=== PATIENT | male | born 1960 | race Caucasian/White ===

== ENCOUNTER 2024-05-09 13:21 | Emergency (ER) | payer BC, SELFPAY ==
[2024-05-09] VITALS (22 sets, daily range): BP systolic 86–141; BP diastolic 59–100; PULSE 83–143; RESP 22; TEMP 37.1; O2SAT 85–98; BMI 27.5
--- OUTSIDE RECORDS SUMMARY | 2024-05-09 13:23 | XMS_ITS | Referral Summary ---
Author Organization [facility] Address [address] [place] [address] Care Team Providers Care Beta Tester Name Role Phone Elsewhere, Pcp Primary Care Provider Unavailabl e Source Comments Patient records contain information from all sites at [facility]. For routine questions regarding patient records, call [phone] during business hours, M-F 8:00 AM - 5:00 PM Central Time. Record requests for emergency care only can be directed to [phone] at any time.[facility] Encounters Date Type Department Care Team Description 2024 8:59 AM CASING SOAKER - 2024 10:14 AM [facility] Emergency [place] [facility] Department [address] [place] [phone] Kaur Hagen, JOYCE, C.N.P. Cough Acute (Primary Dx); Elevated Blood Pressure; Adjustment Disorder With Anxious Mood Discharge Disposition: Home or Self Care 04/28/2024 12:40 PM CASING SOAKER - 04/28/2024 12:57 PM [facility] Emergency [place] [facility] [address] [place] [phone] Lilly Mckenna P.A.-C., P.A. Cough Unspecified Type (Primary Dx) Discharge Disposition: Home or Self Care from Last 3 Months Allergies Active Allergy Reactions Criticality Noted Date Comments Cat Dander Other (see comments) 11/27/2008 Itchy watery eyes, allergies No Known Allergies Other (see comments) 013 Medications ibuprofen (for_ADVIL,MOTRI N) 200 mg tablet Take 600 mg by mouth every 6 (six) hours as needed for pain. Active acetaminophen (for_TYLENOL) 500 mg capsule Take 500 mg by mouth every 6 (six) hours as needed for pain. Active buPROPion (for_WELLBUTRIN) 75 mg tablet Take 1 tablet (75 mg total) by mouth 2 (two) times a day. 60 tablet 8 Active cyclobenzaprine (FLEXERIL) 5 mg tabletIndication s:Sciatica Right Take 1 tablet (5 mg total) by mouth 3 (three) times a day as needed for muscle spasms for up to 10 days. 30 tablet 1 Active benzonatate (Tessalon Perles) 100 mg capsule Take 1 capsule (100 mg total) by mouth 3 (three) times a day as needed for cough. 20 capsule 4 Active doxycycline monohydrate (Monodox) 100 mg capsuleIndicatio ns:Cough Acute Take 1 capsule (100 mg total) by mouth 2 (two) times a day before morning and evening meals for 5 days. 10 capsule 5 05/12/19 25 Active albuterol 90 mcg/actuation inhaler Inhale 2 puffs every 6 (six) hours as needed for wheezing. 18 g 5 Active hydrOXYzine (Atarax) 10 mg tablet Take 1 tablet (10 mg total) by mouth every 6 (six) hours as needed for anxiety for up to 10 days. 30 tablet 5 05/17/19 25 Active predniSONE (Deltasone) 20 mg tablet Take 1 tablet (20 mg total) by mouth 2 (two) times a day for 5 days. 10 tablet 4 05/03/19 25 Active Problems No known active problems Social History Tobacco Use Types Packs/Day Years Used Date Smoking Tobacco: Every Day Cigarettes 1 25 Passive Smoke Exposure: Never Smokeless Tobacco: Never Tobacco Cessation:Ready to Q uit: Not Asked; Counseling Given: Not Answered Alcohol Use Standard Drinks/Week Comments Yes 8 (1 standard drink = 0.6 oz pur e alcohol) Nutrition Answer Date Recorded Nutrition: EVOO Fat Source 13 11/27 Nutrition: Servings of Fruits/Vegetables per Day Not on file 11/28/2019 Dental Answer Date Recorded Dental: Regular Dentist Unknown 07/06/19 21 Sex and Gender Information Value Date Recorded Sex Assigned at Not on file Legal Sex Male 5:17 PM CASING SOAKER Gender Identity Not on file Sexual Orientation Not on file Last Filed Vital Signs Vital Sign Reading Time Taken Comments Blood Pressure 135/87 2024 10:09 AM CASING SOAKER Pulse 73 2024 10:09 AM CASING SOAKER Temperature 36.3 C (97.3 F) 2024 8:33 AM CASING SOAKER Respiratory Rate 20 2024 8:33 AM CASING SOAKER Oxygen Saturation 98% 2024 8:33 AM CASING SOAKER Inhaled Oxygen Concentration - - Weight 90.2 kg (198 lb 12.8 oz) 2024 8:37 AM CASING SOAKER Height 179.1 cm (5' 10.5) 2024 8:36 AM CS T Body Mass Index 28.12 2024 8:36 AM CASING SOAKER Plan of Treatment Not on file Procedures Procedure Name Priority Date/Time Associated Diagnosis Comments DX CHEST AP OR PA AND LATERAL 2 VIEWS RAD - Semiurgent (Fast; most ED patients; some inpatients) 04/28/2024 12:02 PM CASING SOAKER BASIC METABOLIC PANEL, S/P STAT 10/07/2022 6:41 PM CDT Fatigue from Last 3 Months or Most Recently Relevant to Health Maintenance Results * DX Chest AP or PA and Lateral 2 Views (04/28/2024 12:02 PM CASING SOAKER) Anatomical Region Laterality Modality Chest, Thoracic RST LOS, Tho racic ARZ LOS, Thoracic FLA LOS N/A Digital Radiography Impressions 04/28/2024 12:06 PM CASING SOAKER 1. No active cardiopulmonary disease. 2. 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 Narrative 04/28/2024 12:06 PM CASING SOAKER EXAM: DX CHEST AP OR PA AND LATERAL 2 VIEWS COMPARISON: None FINDINGS: Bony thorax is unremarkable. Heart size and pulmonary vascularity are within normal limits. There are scattered nodular densities in the right infrahilar region and middle lobe likely representing granulomata. Lungs are clear of infiltrates or effusions. Procedure Note Norman Lees Jr., M.D. - 04/28/2024 EXAM: DX CHEST AP OR PA AND LATERAL 2 VIEWS COMPARISON: None FINDINGS: Bony thorax is unremarkable. Heart size and pulmonaryvascularity are within normal limits. There are scattered nodulardensities in the right infrahilar region and middle lobe likelyrepresenting granulomata. Lungs are clear of infiltrates or effusions. IMPRESSION: 1. No active cardiopulmonary disease. 2. 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 Lilly Mckenna P.A.-C., P.A. IMG DIAGNOSTIC IMAGI NG PROCEDURES Final Result * Basic Metabolic Panel (10/07/2022 6:41 PM CDT) Potassium, P 4.0 3.6 - 5.2 mmol/L 10/07/2022 7:03 PM CDT NPRG Sodium, P 138 135 - 145 mmol/L 10/07/2022 7:03 PM CDT NPRG Chloride, P 103 98 - 107 mmol/L 10/07/2022 7:03 PM CDT NPRG Bicarbonate, P 24 22 - 29 mmol/L 10/07/2022 7:03 PM CDT NPRG Anion Gap, P 11 7 - 15 10/07/2022 7:03 PM CDT NPRG BUN (Blood Urea Nitrogen), P 13 8 - 24 mg/dL 10/07/2022 7:03 PM CDT NPRG Creatinine 0.95 0.74 - 1.35 mg/dL 10/07/2022 7:03 PM CDT NPRG Estimated GFR (eGFR) >90 >=60 mL/min/BSA 10/07/2022 7:03 PM CDT NPRG Comment: Estimated GFR calculated using the 2020 CKD_EPI creatinine equation. Calcium, Total, P 8.9 8.8 - 10.2 mg/dL 10/07/2022 7:03 PM CDT NPRG Glucose, P 88 70 - 140 mg/dL 10/07/2022 7:03 PM CDT NPRG Blood (Blood, Venous) 10/07/2022 6:41 PM CDT 10/07/2022 6:45 PM CDT Beto Medina P.A.-C., P.A. LAB BLOOD ADD -ON Final Result [facility] [address] [place] [address], [place] NPRG [facility] [address] [place] [address] from Last 3 Months or Most Recently Relevant to Health Maintenance Insurance [facility] [place] [id number] Care Teams Beta Tester Relationship Specialty Start Date End Date Elsewhere, Pcp PCP - General Internal Medicine 02/21/19
--- OUTSIDE RECORDS SUMMARY | 2024-05-09 13:23 | XMS_ITS | Clinical Summary ---
Author Organization [facility] Address [place], [place] [address] Care Team Providers Care Automotive Painter Helper Name Role Phone Bernard Ohara DO Primary Care Provider [phone] Allergies Active Allergy Reactions Criticality Noted Date Comments Cats (Fur, Dander, Saliva) 9 Medications polyethylene glycol-electroly te (GOLYTELY) 236-22.74-6.74 -5.86 gram suspensionIndica tions:Encounter for screening colonoscopy Drink 2 liters (half the bottle) the day before colonoscopy and 2 liters (remaining prep) 6 hours prior to colonoscopy appointment. 4000 mL 3 Active albuterol HFA (PRO-AIR; VENTOLIN; PROVENTIL) 90 mcg/actuation inhaler Inhale 2 Puffs by mouth every 6 hours if needed. 5 Active doxycycline monohydrate 100 mg capsule Take 100 mg by mouth. 5 05/12/19 25 Active predniSONE (DELTASONE) 20 mg tablet 4 Active Active Problems Problem Noted Date Diagnosed Date Colon polyp 10/30/2022 Overview (10/30/2022): Colonoscopy 10/2022 TA, repeat in 7 years Tobacco use 10/16/2022 Encounters Date Type Department Care Team Description 05/09/2024 12:30 PM AIRPLANE CHARTER CLERK Office Visit [facility] [address] [place] [address] Mariela Schmitz PA Breathing Problem (Patient was seen in ED ON 04/28/24- 05/07/24 for cough and breathing issues, patient still has trouble BREATHING CANT SLEEP /BODY ACHES x 2 weeks, patient was given medication it helps a little bit /) 05/09/2024 Travel from Last 3 Months Immunizations Name Administration Dates Next Due Influenza, IIV4 02/04/2023 Tdap 02/04/2023 Family History Medical History Relation Name Comments Cancer-colon Father Diverticulosis Mother Relation Name Status Comments Father Mother Social History Tobacco Use Types Packs/Day Years Used Date Smoking Tobacco: Former Cigarettes 1 13.3 0 12/01/2009 - 12/01/2005 Smokeless Tobacco: Never Tobacco Cessation:Counseling Given: No Comments:Patient quit x 2 months ago Alcohol Use Standard Drinks/Week Comments Not Currently 0 (1 standard drink = 0.6 oz pur e alcohol) occassionally PHQ-2 Answer Date Recorded PHQ-2 TOTAL SCORE 0 10/16/2022 Social Connections Answer Date Recorded Frequency of Communication with Friends and Fami ly 0 02/04/2023 Financial Resource Strain Answer Date R ecorded Difficulty of Paying Living Expenses 3 02/04/2023 Difficulty of Paying Living Expenses Not on file 02/04/2023 Food Insecurity Answer Date Recorded Worried About Running Out of Food in the Last Ye ar 1 02/04/2023 Transportation Needs Answer Date Record ed Lack of Transportation (Medical) 1 02/04/2023 Housing Stability Answer Date Recorded Unable to Pay for Housing in the Last Year 1 02/04/2023 Sex and Gender Information Value Date Recorded Sex Assigned at Not on file Legal Sex Male 5:42 AM AIRPLANE CHARTER CLERK Gender Identity Not on file Sexual Orientation Not on file Obstetrics History Last Filed Vital Signs Vital Sign Reading Time Taken Comments Blood Pressure 128/84 05/09/2024 12:31 PM AIRPLANE CHARTER CLERK Pulse 57 05/09/2024 12:31 PM AIRPLANE CHARTER CLERK Temperature 37.1 C (98.8 F) 05/09/2024 12:31 PM AIRPLANE CHARTER CLERK Respiratory Rate 16 10/27/2022 2:33 PM CDT Oxygen Saturation 97% 05/09/2024 12: 31 PM AIRPLANE CHARTER CLERK Inhaled Oxygen Concentration - - Weight 92.1 kg (203 lb 1.6 oz) 05/09/19 12:31 PM AIRPLANE CHARTER CLERK Height 182 cm (5' 11.65) 05/09/2024 12 :31 PM AIRPLANE CHARTER CLERK with shoes Body Mass Index 27.81 05/09/2024 12:31 PM AIRPLANE CHARTER CLERK Plan of Treatment Health Maintenance Due Date Last Done Comments HIV for age 15-65 1975 Hepatitis C screening for ag e 18-79 1978 Pneumococcal series for age 50+ (1 of 2 - PCV) 1979 Zoster (shingles) series for age 50+ (1 of 2) 2010 Depression screening for age 12+ 10/21/2023 10/20/2022, 10/16/2022, 10/16/2022 COVID-19 vaccine series (2 - season) 2024 09/18/2020 Influenza for age 50-64 01/02/2024 02/04/2023 BMI (ht and wt on same day) for age 18+ 05/09/2025 05/09/2024, 10/16/2022 Lipids for age 45-75 10/17/2027 10/16/2022 Colonoscopy through age 75 10/27/202910/27, 10/27/2022, 10/27/2022, Additional history exists Tetanus booster 02/04/2033 02/04/2023 RSV vaccine for adults or (1 - 1-dose 75+ series) 2035 Tdap Completed 02/04/2023 Procedures Procedure Name Priority Date/Time Associated Diagnosis Comments COLONOSCOPY SCREENING Routine 10/27/2022 1:21 PM CDT Screen for colon cancer LIPID PANEL W REFLEX MEASURED LDL Routine 10/16/2022 4:07 PM CDT Lipid screening from Last 3 Months or Most Recently Relevant to Health Maintenance Results * COLONOSCOPY (10/27/2022 1:18 PM CDT) 10/27/2022 1:18 PM CDT Narrative Transcriptions Ruslan Aburto MD - 11/25/2022 3:11 PM CDT Patient Name: Chidi Farmer Procedure Date: 10/27/2022 Gender: Male Date of : 1960 Admit Type: Outpatient Procedure: Colonoscopy Proceduralist: Ruslan Aburto MD , Marce Clark (Nurse), Viktoriya Valdes (Nurse) Referring MD: Bernard Ohara Indications/Pre-Op Diagnosis: Screening for colorectal malignant neoplasm, This is the patient's first colonoscopy Medications: Fentanyl 100 micrograms IV, Midazolam 4 mgIV, The level of sedation administered wasmoderate Procedure Description: The patient had risks, benefits and alternatives explained to andgave informed consent. The patient had a stable cardiopulmonary status and judged an adequate candidate for conscious sedation. The PCF-H190L [id number] was passed through the anus and advanced to the cecum, identified by appendiceal orifice and ileocecal valve. The colonoscopy was performed without difficulty. The patient toleratedthe procedure well. The quality of the bowel preparation was good. The ileocecal valve, appendiceal orifice, and rectum were photographed. Complications: No immediate complications. Estimated Blood Loss & Specimen: Estimated blood loss: none. Specimen collected - Yes and sent to Laboratory Findings: The perianal and digital rectal examinations were normal. A 3 mm polyp was found in the cecum. The polyp was sessile. The polyp was removed with a cold snare. Resection was complete, but the polyp tissue was not retrieved. A 2 mm polyp was found in the ascending colon. The polyp was sessile. The polyp was removed with a cold biopsy forceps. Resection and retrieval were complete. The exam was otherwise without abnormality. Impressions/Post-Op Diagnosis: - One 3 mm polyp in the cecum, removed with a cold snare. Complete resection. Polyp tissue not retrieved. - One 2 mm polyp in the ascending colon, removed with a cold biopsy forceps. Resected and retrieved. - The examination was otherwise normal. Recommendation: - Patient has a contact number available for emergencies. The signsand symptoms of potential delayed complications were discussed with the patient. Return to normal activities tomorrow. Written discharge instructions were provided to the patient. - Resume previous diet. - Continue present medications. - Await pathology results. - Repeat colonoscopy is recommended. The colonoscopy date will be determined after pathology results from today's exam become available for review. Moderate Sedation: A time out was performed before the procedure. Moderate (conscious) sedation was administered by the endoscopy nurse and supervised bythe endoscopist. The following parameters were monitored: oxygensaturation, heart rate, blood pressure, EKG, CO2, respiratory rate, adequacy of pulmonary ventilation and reponse to care. Please refer to the patient's medical record flowsheets and nursing notes for moderate sedation details. Total physician intraservice time was 19 minutes. Ruslan Aburto MD 10/27/2022 2:19:07 PM This report has been signed electronically. Note Initiated On: 10/27/2022 1:18 PM Procedure Code(s): --- Professional --- 79817, Colonoscopy, flexible; with removalof tumor(s), polyp(s), or other lesion(s) bysnare technique 30213, 59, Colonoscopy, flexible; withbiopsy, single or multiple Diagnosis Code(s): --- Professional --- Z12.11, Encounter for screening formalignant neoplasm of colon D12.0, Benign neoplasm of cecum D12.2, Benign neoplasm of ascending colon CPT copyright 2021 [employer]. All rights reserved. The codes documented in this report are preliminary and upon nut sorter operator reviewmay be revised to meet current compliance requirements. Scope In: 1:51:32 PM Scope Withdrawal Time 0 hours 10 minutes 22 seconds Scope Out: 2:07:12 PM us Ruslan Aburto MD PROCEDURE ORD Edited Re sult - Final * (ABNORMAL) LIPID PANEL W REFLEX MEASURED LDL (10/16/2022 4:07 PM CDT) CHOLESTEROL,TOTAL 216(H) 100 - 199 mg/dL 10/16/2022 11:08 PM CDT [facility] Comment: Cholesterol, Total Reference Ranges Desirable <200 mg/dL Borderline 200-239 mg/dL High >=240 mg/dL TRIGLYCERIDES 123 <150 mg/dL 10/16/2022 11:08 PM CDT [facility] HDL CHOLESTEROL 40(L) >40 mg/dL 11:08 PM CDT [facility] NON-HDL CHOLESTEROL 176(H) <145 mg/dl 10/16/2022 11:08 PM CDT [facility] CHOL/HDL RATIO 5.40(H) <4.50 10/16/2022 11:08 PM CDT [facility] LDL CHOLESTEROL 151(H) <=130 mg/dL 10/16/2022 11:08 PM CDT [facility] VLDL CHOLESTEROL 25 <=30 mg/dL 10/16/2022 11:08 PM T [facility] PROVIDER ORDERED STATUS RANDOM 10/16/2022 11:08 PM T [facility] Blood BLOOD SPECIMEN / Unknown Venipuncture / Unknown 10/16/2022 4:07 PM CDT 10/16/2022 4:09 PM CDT us Bernard Ohara DO CHEMISTRY Final Result [facility] [address] [place] [address], [place] from Last 3 Months or Most Recently Relevant to Health Maintenance Care Teams Automotive Painter Helper Relationship Specialty Start Date End Date Bernard Ohara DO [address] [place] [address] PCP - General Family Practice 10/16/22
--- OUTSIDE RECORDS SUMMARY | 2024-05-09 13:23 | XMS_ITS | Clinical Summary ---
Author Organization [facility] Address [address] [place] [address] Care Team Providers Care Tourist Agent Name Role Phone Elsewhere, Pcp Primary Care Provider Unavailabl e Source Comments Patient records contain information from all sites at [facility]. For routine questions regarding patient records, call [phone] during business hours, M-F 8:00 AM - 5:00 PM Central Time. Record requests for emergency care only can be directed to [phone] at any time.[facility] Allergies Active Allergy Reactions Criticality Noted Date [...] 25 Active Problems No known active problems Encounters Date Type Department Care Team Description 2024 8:59 AM SEWING MACHINE BOBBIN WINDER - 2024 10:14 AM [facility] Emergency/Urgent Care Department [address] [place] [phone] Kaur Hagen, JOYCE, C.N.P. Cough Acute (Primary Dx); Elevated Blood Pressure; Adjustment Disorder With Anxious Mood Discharge Disposition: Home or Self Care 04/28/2024 12:40 PM SEWING MACHINE BOBBIN WINDER - 04/28/2024 12:57 PM [facility] Emergency/Urgent Care Department [address] [place] [phone] Lilly Mckenna P.A.-C., P.A. Cough Unspecified Type (Primary Dx) Discharge Disposition: Home or Self Care from Last 3 Months Family History Medical History Relation Name Comments Colon cancer Father Coronary artery disease Father Atrial fibrillation Mother Relation Name Status Comments Father Alive Mother Alive Social History Tobacco Use Types Packs/Day Years [...] on file Legal Sex Male 5:17 PM SEWING MACHINE BOBBIN WINDER Gender Identity Not on file Sexual Orientation Not on file Last Filed Vital Signs Vital Sign Reading Time Taken Comments Blood Pressure 135/87 2024 10:09 AM SEWING MACHINE BOBBIN WINDER Pulse 73 2024 10:09 AM SEWING MACHINE BOBBIN WINDER Temperature 36.3 C (97.3 F) 2024 8:33 AM SEWING MACHINE BOBBIN WINDER Respiratory Rate 20 2024 8:33 AM SEWING MACHINE BOBBIN WINDER Oxygen Saturation 98% 2024 8:33 AM SEWING MACHINE BOBBIN WINDER Inhaled Oxygen Concentration - - Weight 90.2 kg (198 lb 12.8 oz) 2024 8:37 AM SEWING MACHINE BOBBIN WINDER Height 179.1 cm (5' 10.5) 2024 8:36 AM CS T Body Mass Index 28.12 2024 8:36 AM SEWING MACHINE BOBBIN WINDER Plan of Treatment Health Maintenance Due Date Last Done Comments CT Colonography 1960 Cologuard 1960 HIV Screening 1960 Hepatitis C Screening 1960 Lung Cancer Screening 1960 Tobacco Cessation counseling 1960 Pneumococcal vaccine (50+ ye ars) (1 of 2 - PCV) 1979 Zoster Vaccines (1 of 2) 2010 COVID-19 Vaccine (2 - 2023-2 5 season) 2024 09/18/2020 Influenza Vaccine (#1) 2024 02/04/2023 Depression Screening (Annual PHQ-2) 05/03/2024 Fasting Glucose for Diabetes Screening 10/07/2025 10/07/2022 Lipid (Cholesterol) Screening 10/17/2027 10/16/2022 Colonoscopy 10/28/2027 10/27/2022 Colorectal Cancer Surveillance 10/28/2027 DTaP,Tdap,and Td Vaccines (2 - Td or Tdap) 02/04/2033 02/04/2023 IPV Vaccines Aged Out No longer eligi ble based on patient's age to complete this topic Procedures Procedure Name Priority Date/Time Associated Diagnosis Comments DX CHEST AP OR PA AND LATERAL 2 VIEWS RAD - Semiurgent (Fast; most ED patients; some inpatients) 04/28/2024 12:02 PM SEWING MACHINE BOBBIN WINDER BASIC METABOLIC PANEL, S/P STAT 10/07/2022 6:41 PM CDT Fatigue from Last 3 Months or Most Recently Relevant to Health Maintenance Results * DX Chest AP or PA and Lateral 2 Views (04/28/2024 12:02 PM SEWING MACHINE BOBBIN WINDER) Anatomical Region Laterality Modality Chest, Thoracic RST LOS, Tho racic ARZ LOS, Thoracic FLA LOS N/A Digital Radiography Impressions 04/28/2024 12:06 PM SEWING MACHINE BOBBIN WINDER 1. No active cardiopulmonary disease. 2. 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 Narrative 04/28/2024 12:06 PM SEWING MACHINE BOBBIN WINDER EXAM: DX CHEST AP OR PA AND [...] on the right. Lilly Mckenna P.A.-C., P.A. IM DIAGNOSTIC IMAGI NG PROCEDURES Final Result * [...] P.A. LAB BLOOD ADD -ON Final Result [facility] [address] [place] [address], [facility] NPRG [facility] [address] [place] [address] from Last 3 Months or Most Recently Relevant to Health Maintenance Insurance [facility] [place]USEPPE [place] [id number] Care Teams Tourist Agent Relationship Specialty Start Date End Date Elsewhere, Pcp PCP - General Internal Medicine 02/21/19
--- OUTSIDE RECORDS SUMMARY | 2024-05-09 13:24 | XMS_ITS | Encounter Summary ---
Author Organization [facility] Address [address] [place] [address] Care Team Providers Care Clam Dredger Name Role Phone Elsewhere, Pcp Primary Care Provider Unavailabl e Reason for Visit * Reason Comments Cough Pt presents with cou gh that has been bothersome for about one week. No known fevers, chills or rigors. Pt states has trouble sleeping due to cough. Cough is productive of whitish/clear phlegm. Appetite has not been the same, able to take liquids easily. Denies new onset of body aches. Encounter Details Date Type Department Care Team (Late st Contact Info) Description 04/28/2024 12:40 PM SETTER COLD ROLLING MACHINE - 04/28/2024 12:57 PM SETTER COLD ROLLING MACHINE Emergency [facility] [address] [place] [phone] Lilly Mckenna P.A.-Victor Hugo., P.A. [address] [place] [phone] Cough Unspecified Type (Primary Dx) Discharge Disposition: Home or Self Care Social History Tobacco Use Types Packs/Day Years Used Date Smoking Tobacco: Every Day Cigarettes 1 25 Passive Smoke Exposure: Never Smokeless Tobacco: Never Alcohol Use Standard Drinks/Week Comments Yes 8 [...] on file Legal Sex Male 5:17 PM SETTER COLD ROLLING MACHINE Gender Identity Not on file Sexual Orientation Not on file documented as of this encounter Last Filed Vital Signs Vital Sign Reading Time Taken Comments Blood Pressure 110/88 04/28/2024 11:50 AM SETTER COLD ROLLING MACHINE Pulse 78 04/28/2024 11:46 AM SETTER COLD ROLLING MACHINE Temperature 36.8 C (98.2 F) 04/28/2024 11:46 AM SETTER COLD ROLLING MACHINE Respiratory Rate 18 04/28/2024 11:4 6 AM SETTER COLD ROLLING MACHINE Oxygen Saturation 97% 04/28/2024 11: 46 AM SETTER COLD ROLLING MACHINE Inhaled Oxygen Concentration - - Weight 94.2 kg (207 lb 11.2 oz) 024 11:45 AM SETTER COLD ROLLING MACHINE Height 182.9 cm (6') 04/28/2024 11:45 AM SETTER COLD ROLLING MACHINE Body Mass Index 28.17 04/28/2024 11:45 AM SETTER COLD ROLLING MACHINE documented in this encounter Medications at Time of Discharge acetaminophen (for_TYLENOL) 500 mg capsule Take 500 mg by mouth every 6 (six) hours as needed for pain. benzonatate (Tessalon Perles) 100 mg capsule Take 1 capsule (100 mg total) by mouth 3 (three) times a day as needed for cough. 20 capsule 04/28/2024 ibuprofen (for_ADVIL,MOTRIN ) 200 mg tablet Take 600 mg by mouth every 6 (six) hours as needed for pain. predniSONE (Deltasone) 20 mg tablet Take 1 tablet (20 mg total) by mouth 2 (two) times a day for 5 days. 10 tablet 04/28/2024 05/03/2024 documented as of this encounter Progress Notes * Lilly Mckenna P.A.-Victor Hugo., P.A. - 04/28/2024 12:57 PM CST SUBJECTIVE CHIEF COMPLAINT / REASON FOR VISIT Cough (Pt presents with cough that has been bothersome for about one week. No known fevers, chills or rigors. Pt states has trouble sleeping due to cough. Cough is productive of whitish/clear phlegm.Appetite has not been the same, able to take liquids easily. Denies new onset of body aches. ) HISTORY OF PRESENT ILLNESS Chidi Farmer is a 63 y.o. male who presents for evaluation of Cough (Pt presents with coughthat has been bothersome for about one week. No known fevers, chills or rigors. Pt states has trouble sleeping due to cough. Cough is productive of whitish/clear phlegm. Appetite has not been the same, able to take liquids easily. Denies new onset of body aches. ). Pt denies fever. No sinus congestion or drainage. Denies sore throat. No known ill contacts. Denies history of asthma or COPD. The patient's social and medical history was reviewed in the electronic medical record. ALLERGIES/CONTRAINDICATIONS Allergies Allergen Reactions Cat Dander Other (see comments) Itchy watery eyes, allergies No Known Allergies Other (see comments) OBJECTIVE VITAL SIGNS BP 110/88 Pulse 78 Temp 36.8 ??C (Temporal) Comment (Src): tylenol taken today. Resp 18 Ht 182.9 cm Wt 94.2 kg SpO2 97% BMI 28.17 kg/m?? PHYSICAL EXAMINATION General: Patient is alert and in no acute distress. HEENT: Pupils PERRLA. Conjunctivae clear without hemorrhages or exudates. Auditory canals normal without erythema or edema. TMs pearly miller and intact without erythema. Oral cavity adequately hydrated. Posterior pharynx normal without erythema or drainage present. Neck: Supple without lymphadenopathy. Respiratory: effort is easy. Lung sounds are clear to auscultation. Cardiovascular: S1, S2 present. Normal rate and rhythm. Musculoskeletal: Grossly intact. No deformities noted. Skin: Normal color, temperature and moisture. No rashes or lesions noted. DIAGNOSTICS Labs: No results found for this or any previous visit (from the past 24 hours). Imaging: DX Chest AP or PA and Lateral 2 Views Result Date: 04/28/2024 Impression: 1. No active cardiopulmonary disease. 2. 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 Curb 65 ASSESSMENT / PLAN #1 Cough Unspecified Type Other orders - DX Chest AP or PA and Lateral 2 Views; Standing - DX Chest AP or PA and Lateral 2 Views - benzonatate (Tessalon Perles) 100 mg capsule; Take 1 capsule (100 mg total) by mouth 3 (three) times a day as needed for cough., Starting Wed04/28/2024, Normal - predniSONE (Deltasone) 20 mg tablet; Take 1 tablet (20 mg total) by mouth 2 (two) times a day for5 days., Starting Wed04/28/2024, Until Wed05/03/2024, Normal Chest xray was obtained showed no acute findings. Reviewed with patient findings consistent for viral illness. Medications as prescribed/directed. Reviewed indications and risks of medications with patient. OTC medications reviewed. Follow up if no improvement in 3-4 days, sooner if new/worsening symptoms. Symptomatic treatments were discussed. Cover your cough. Wash hands frequently. Concerning symptoms to watch for were discussed. If new or concerning symptoms develop, seek medical attention. Patient verbalizes understanding and acceptance of this plan of care and denies any further needs or questions at this time. Lilly Mckenna P.A.-C., P.A. Lilly Mckenna P.A.-C., P.A. 04/28/24 1300 ER COLD ROLLING MACHINE documented in this encounter Plan of Treatment Not on file documented as of this encounter Procedures Procedure Name Priority Date/Time Associated Diagnosis Comments DX CHEST AP OR PA AND LATERAL 2 VIEWS RAD - Semiurgent (Fast; most ED patients; some inpatients) 04/28/2024 12:02 PM SETTER COLD ROLLING MACHINE documented in this encounter Results * DX Chest AP or PA and Lateral 2 Views (04/28/2024 12:02 PM SETTER COLD ROLLING MACHINE) Anatomical Region Laterality Modality Chest, Thoracic RST LOS, Tho racic ARZ LOS, Thoracic FLA LOS N/A Digital Radiography Impressions 04/28/2024 12:06 PM SETTER COLD ROLLING MACHINE 1. No active cardiopulmonary disease. 2. 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 Narrative 04/28/2024 12:06 PM SETTER COLD ROLLING MACHINE EXAM: DX CHEST AP OR PA AND [...] granulomatous disease on the right. Lilly Mckenna P.A.-C. PBrittanieA. IMG DIAGNOSTIC IMAGI NG PROCEDURES Final Result documented in this encounter Visit Diagnoses Diagnosis Cough Unspecified Type- Primary documented in this encounter Additional Health Concerns Assessment Noted Time PHQ-9 Depression Total Score: 18 018 10:00 AM SETTER COLD ROLLING MACHINE documented as of this encounter Care Teams Clam Dredger Relationship Specialty Start Date End Date Elsewhere, Pcp PCP - General Internal Medicine 02/21/19 documented as of this encounter
--- OUTSIDE RECORDS SUMMARY | 2024-05-09 13:24 | XMS_ITS ---
Author Organization [facility] Address [address] [place] [address] Care Team Providers Care Cosmetology Instructor Name Role Phone Unavailable Unavailable Unavailable Surgery Details Not on file Complications Check Surgery Details section. Procedure Estimated Blood Loss Check Surgery Details section. Procedure Findings Check Surgery Details section. Procedure Specimens Taken Check Surgery Details section.
--- OUTSIDE RECORDS SUMMARY | 2024-05-09 13:24 | XMS_ITS | Encounter Summary ---
Author Organization [facility] Address [address] [place] [address] Care Team Providers Care Print Binding Worker Name Role Phone Elsewhere, Pcp Primary Care Provider Unavailabl e Reason for Visit * Reason Comments Cough Patient presents wit h a cough for two weeks. States he was given meds for bronchitis (prednisone and tesslon pearls) and it's not working, I need Amoxicillin. Encounter Details Date Type Department Care Team ([facility] st Contact Info) Description 2024 8:59 AM BRISTLE MACHINE OPERATOR - 2024 10:14 AM BRISTLE MACHINE OPERATOR Emergency [facility] [address] [place] [phone] Kaur Hagen, GEOTHERMAL HEAT PUMP MACHINIST, C.N.P. [address] [place] [phone] Cough Acute (Primary Dx); Elevated Blood Pressure; Adjustment Disorder With Anxious Mood Discharge Disposition: Home or Self Care Social [...] on file Legal Sex Male 5:17 PM BRISTLE MACHINE OPERATOR Gender Identity Not on file Sexual Orientation Not on file documented as of this encounter Last Filed Vital Signs Vital Sign Reading Time Taken Comments Blood Pressure 135/87 2024 10:09 AM BRISTLE MACHINE OPERATOR Pulse 73 2024 10:09 AM BRISTLE MACHINE OPERATOR Temperature 36.3 C (97.3 F) 2024 8:33 AM BRISTLE MACHINE OPERATOR Respiratory Rate 20 2024 8:33 AM BRISTLE MACHINE OPERATOR Oxygen Saturation 98% 2024 8:33 AM BRISTLE MACHINE OPERATOR Inhaled Oxygen Concentration - - Weight 90.2 kg (198 lb 12.8 oz) 2024 8:37 AM BRISTLE MACHINE OPERATOR Height 179.1 cm (5' 10.5) 2024 8:36 AM CS T Body Mass Index 28.12 2024 8:36 AM BRISTLE MACHINE OPERATOR documented in this encounter Discharge Instructions * Discharge Instructions* Kaur Hagen APRN, C.N.P. - 2024 9:58 AM BRISTLE MACHINE OPERATOR Follow up with primary care provider for elevated blood pressure. Hydroxyzine one tablet every 4-6 hours as needed for anxious thoughts, before bed. Antibiotic and inhaler to treat persistent cough with wheezing. Continue to stop smoking cigarettes. Return if symptoms fail to gradually improve, worsen or as needed for any new concerns. To the emergency department with any chest pain, shortness a breath, increased difficulty breathing, speaking, swallowing or any other emergent concern. TLE MACHINE OPERATOR * Attachments The following attachments cannot be sent through Care Everywhere. * Hypertension Adult [id number] (Georgian) * Cough Adult (Georgian) documented in this encounter Medications at Time [...] 6 (six) hours as needed for pain. albuterol 90 mcg/actuation inhaler Inhale 2 puffs every 6 (six) hours as needed for wheezing. 18 g 2024 doxycycline monohydrate (Monodox) 100 mg capsuleIndication s:Cough Acute Take 1 capsule (100 mg total) by mouth 2 (two) times a day before morning and evening meals for 5 days. 10 capsule 2024 05/12/2024 hydrOXYzine (Atarax) 10 mg tablet Take 1 tablet (10 mg total) by mouth every 6 (six) hours as needed for anxiety for up to 10 days. 30 tablet 2024 05/17/2024 documented as of this encounter Progress Notes * Kaur Hagen APRN, C.N.P. - 2024 9:06 AM CST SUBJECTIVE CHIEF COMPLAINT / REASON FOR VISIT Cough (Patient presents with a cough for two weeks. States he was given meds for bronchitis (prednisone and tesslon pearls) and it's not working, I need Amoxicillin. ) HISTORY OF PRESENT ILLNESS Chidi Farmer is a 64 y.o. male who presents for evaluation of persistent cough. Seen 2 weeks ago. Treated with prednisone and Tessalon without relief of symptoms. Cough escalating. Particularly at night. With wheezing. Patient is fatigued from being unable to sleep. Patient is restless and irritable admits to a difficult time of the year with the passing of his father 1 year ago. From colorectal cancer. Concerns with adult children. Denies thoughts of or self harm. The following portions of the patient's history were reviewed and updated as appropriate: Allergies, current medications, medical history. REVIEW OF SYSTEMS Pertinent items are noted in HPI; all other review of systems was negative. OBJECTIVE VITAL SIGNS BP (!) 134/120 Comment: patient very agitated, wouldn't sit still during vitals Pulse 77 Temp 36.3 ??C (Temporal) Resp 20 Ht 179.1 cm Wt 90.2 kg SpO2 98% BMI 28.12 kg/m?? PHYSICAL EXAMINATION Physical Exam General: Restless fatigued 64 y.o. male with obvious cough. Skin: Warm, dry and intact. Head: Normocephalic with congestion in maxillary and nasal regions. Nares boggy, draining thick tansecretions. Eyes: Conjunctivae minimally injected bilaterally. Ears: Tympanic membranes are bulging with pink injections and intact bilaterally. Throat: Posteriorly mild erythema and injections in the posterior oropharynx. Cobblestoned appearance. Neck: Full and supple. No lymphadenopathy. Heart: Rate rhythmical and regular without rub or murmur. Lungs: Scattered harsh sounds and wheezes throughout anterior and posterior lung brown. Respirations nonlabored at rest. Escalate with cough. Mental Status: Anxious, rapid speech, tearful. Fatigued. ASSESSMENT / PLAN Diagnosis Plan 1. Cough Acute Active ipratropium-albuteroL 0.5-2.5 mg/3 mL nebulizer solution 3 mL (DuoNeb) doxycycline monohydrate (Monodox) 100 mg capsule 2. Elevated Blood Pressure 3. Adjustment Disorder With Anxious Mood Patient was able to calm after expressing concern with prior treatment and recent losses. Reviewed proper treatment initially. Responded well to DuoNeb inhaler. Improved breathing, respirations improved, and demeanor calmed. Patient will schedule an appointment with his primary care provider in to follow-up on elevated blood pressure. Blood pressure 135/87 upon discharge. Also recommended counseling which is best managed through primary care provider as well. Agrees. Continue to quit smoking as he has done well the past 2 months. Reviewed use and side effects of medication including hydroxyzine for anxious thoughts and prior tobedtime to assist with sleep. No further questions or concerns prior to discharge. Verbally agrees and understands today's plan of care. No further questions or concerns. Follow up as discussed and reviewed in AVS. Discharged from [facility] in vitally stable improved respiratory and anxious condition. Kaur Hagen APRN, C.N.P. 05/07/24 1013 TLE MACHINE OPERATOR documented in this encounter Plan of Treatment Not on file documented as of this encounter Visit Diagnoses Diagnosis Cough Acute- Primary Elevated Blood Pressure Adjustment Disorder With Anxious Mood documented in this encounter Administered Medications Inactive Administered Medications - up to 3 most recent administrations Medication Order MAR Action Action Date Dose Rate Site ipratropium-albuteroL 0.5-2.5 mg/3 mL nebulizer solution 3 mL (DuoNeb) 3 mL, nebulization, Once, On 05/07/24 at 0922, For 1 doseIndications:Cough Acute Given 2024 9:30 AM BRISTLE MACHINE OPERATOR 3 mL Mouth documented in this encounter Active and Recently Administered Medications Times are shown in BRISTLE MACHINE OPERATOR. Scheduled Medication Order 05/05/2024 05/06/2024 2024 ipratropium-albuteroL 0.5-2.5 mg/3 mL nebulizer solution 3 mL (DuoNeb) (COMPLETED) 3 mL, nebulization, Once, On 05/07/24 at 0922, For 1 dose 0930 (Given - Provid er: Sae GreenMBrittanieABrittnaie) documented in this encounter Additional Health Concerns Assessment Noted Time PHQ-9 Depression Total Score: 18 018 10:00 AM BRISTLE MACHINE OPERATOR documented as of this encounter Care Teams Print Binding Worker Relationship Specialty Start Date End Date Elsewhere, Pcp PCP - General Internal Medicine 02/21/19 documented as of this encounter
--- NOTE | 2024-05-09 13:40 | ED_ITS ---
HPI - General Adult General Chief complaint: Arrhythmia/Palpitations Stated complaint: Afib Time Seen by Provider: 05/09/24 13:39 History of Present Illness HPI narrative: Recently had an upper respiratory infection. Went in to clinic because he was sob. EKG afib with RVR. Fam hx. Has not had before 64-year-old man presenting to the emergency department with apparent atrial fibrillation with RVR following evaluation in clinic for shortness of breath. If thought maybe had bronchitis. Has been sick for month or 2. Had noted some wheeze. Really though more over the last 2 weeks with more shortness of breath. He would be unsure about how long he was in atrial fibrillation. Is not having a chest pain. Sister and other family members with atrial fibrillation he notes later. Is not feeling lightheaded. No fever. Admittedly little improved with the cough though over the last 2 days. Quit smoking 2 months ago. Last alcohol was a little over 2 weeks ago noted himself to be sober in this regard Related Data Previous Rx's ?Medication ?Instructions ?Recorded apixaban 5 mg tablet 5 mg PO BID #42 tabs 05/09/24 metoprolol tartrate 25 mg tablet 25 mg PO BID #60 tabs 05/09/24 prednisone 20 mg tablet 40 mg (2 x 20 mg) PO DAILY #10 tabs 05/09/24 Allergies Allergy/AdvReac Type Severity Reaction Status Date / Time No Known Drug Allergies Allergy Verified 05/09/24 13:37 Review of Systems Status of ROS: Reports: 6 or more systems reviewed and unremarkable except as noted in History and below PFSH PFSH Social History Smoking Status: Former smoker Non-prescribed substance use: denies use Exam Narrative: Exam Narrative: Very pleasant. Good energy. Sounds a little congested in the nasopharynx. Lungs are clear. Breathing easily. Heart is tachycardic in what appears to be a regular rhythm though with occasional ectopic beat. Abdomen is soft. Extremities are without edema. Well-perfused peripherally. Const: Vital Signs, click to edit/add: Vital Signs - 24 hr 05/09/24 13:31 05/09/24 13:49 05/09/24 13:53 Temperature 98.7 F Pulse Rate 109 H 109 H Pulse Rate [Pulse Oximeter] 84 Respiratory Rate 22 Blood Pressure 107/93 H Blood Pressure [Ri ght Upper Arm] 141/59 H Pulse Oximetry 97 98 95 Oxygen Delivery Me thod Room Air 05/09/24 14:05 05/09/24 14:23 05/09/24 14:24 Temperature Pulse Rate 123 H 115 H 119 H Pulse Rate [Pulse Oximeter] Respiratory Rate Blood Pressure 111/89 Blood Pressure [Ri ght Upper Arm] Pulse Oximetry 98 96 96 Oxygen Delivery Me thod 05/09/24 14:30 05/09/24 14:37 05/09/24 14:47 Temperature Pulse Rate 99 107 H 97 Pulse Rate [Pulse Oximeter] Respiratory Rate Blood Pressure 103/90 H 111/100 H Blood Pressure [Ri ght Upper Arm] Pulse Oximetry 97 96 92 Oxygen Delivery Me thod 05/09/24 14:48 05/09/24 15:00 05/09/24 15:02 Temperature Pulse Rate 108 H 87 92 Pulse Rate [Pulse Oximeter] Respiratory Rate Blood Pressure 115/86 Blood Pressure [Ri ght Upper Arm] Pulse Oximetry 94 95 89 Oxygen Delivery Me thod 05/09/24 15:19 05/09/24 15:30 05/09/24 15:32 Temperature Pulse Rate 143 H 87 86 Pulse Rate [Pulse Oximeter] Respiratory Rate Blood Pressure 113/92 H 86/74 L Blood Pressure [Ri ght Upper Arm] Pulse Oximetry 85 L 95 96 Oxygen Delivery Me thod 05/09/24 15:43 05/09/24 15:49 05/09/24 15:56 Temperature Pulse Rate 94 105 H 84 Pulse Rate [Pulse Oximeter] Respiratory Rate Blood Pressure 95/77 87/67 L 98/76 Blood Pressure [Ri ght Upper Arm] Pulse Oximetry 92 97 95 Oxygen Delivery Me thod 05/09/24 16:00 05/09/24 16:02 05/09/24 16:18 Temperature Pulse Rate 90 83 115 H Pulse Rate [Pulse Oximeter] Respiratory Rate Blood Pressure 107/93 H Blood Pressure [Ri ght Upper Arm] Pulse Oximetry 94 93 95 Oxygen Delivery Me thod 05/09/24 16:19 Temperature Pulse Rate 100 Pulse Rate [Pulse Oximeter] Respiratory Rate Blood Pressure Blood Pressure [Ri ght Upper Arm] Pulse Oximetry 95 Oxygen Delivery Me thod Documenting provider has reviewed patient's vital signs: yes Course Vital Signs Vital signs: Initial Vital Signs Temperature 98.7 F 05/09/24 13:31 Temperature Source Temporal Artery Scan 05/09/24 13:31 Pulse Rate 84 05/09/24 13:31 Respiratory Rate 22 05/09/24 13:31 Blood Pressure 141/59 H 05/09/24 13:31 Blood Pressure Mean 86 05/09/24 13:31 Blood Pressure Position Sitting 05/09/24 13:31 Pulse Oximetry 97 05/09/24 13:31 Oxygen Delivery Method Room Air 05/09/24 13:31 Vital Signs Temperature 98.7 F 05/09/24 13:31 Pulse Rate 84 05/09/24 13:31 Respiratory Rate 22 05/09/24 13:31 Blood Pressure 141/59 H 05/09/24 13:31 Pulse Oximetry 97 05/09/24 13:31 Oxygen Delivery Method Room Air 05/09/24 13:31 Temperature 98.7 F 05/09/24 13:31 Pulse Rate 100 05/09/24 16:19 Respiratory Rate 22 05/09/24 13:31 Blood Pressure 107/93 H 05/09/24 16:02 Pulse Oximetry 95 05/09/24 16:19 Oxygen Delivery Method Room Air 05/09/24 13:31 Medications Administered Medications: Discontinued Medications Generic Name Dose Route Start Last Admin Trade Name Davianq PRN Reason Stop Dose Admin Apixaban 5 mg 05/09/24 14:31 05/09/24 14:53 Apixaban 5 Mg Tablet PO 05/09/24 14:32 5 mg ONCE ONE Administration Sodium Chloride 1,000 mls @ 1,000 mls/hr 05/09/24 13:49 05/09/24 15:04 0.9 % Sodium Chloride 1000 Ml IV 05/09/24 14:48 Infused .Q1H ONE Infusion Metoprolol Tartrate 5 mg 05/09/24 14:21 05/09/24 14:31 Metoprolol Tartrate 1 Mg/Ml Inj IVP 05/09/24 14:22 5 mg ONCE ONE Administration Metoprolol Tartrate 25 mg 05/09/24 16:19 05/09/24 16:32 Metoprolol Tartrate 25 Mg Tablet PO 05/09/24 16:20 25 mg ONCE ONE Administration Rivaroxaban 10 mg 05/09/24 14:22 05/09/24 14:55 Rivaroxaban 10 Mg Tablet PO 05/09/24 14:23 Not Given ONCE ONE Medical Decision Making MDM Narrative Medical decision making narrative: Notably tachycardic. Placed on quality assurance monitor final. Rate up to 130s. Will look for cause for atrial fibrillation. May have been triggered by recent illness. Does have history of alcohol use/abuse but clarified later that it has been a little over couple of weeks since had a drink. Hydrate. Trial of IV metoprolol. Unclear duration of this atrial fibrillation so probably do not want to cardiovert him. Given normal saline. 5 mg of IV metoprolol. Chest x-ray independently reviewed by me with normal cardiac silhouette. No infiltrate evident. Radiology over-read below INDICATION: Dyspnea. Cough. TECHNIQUE: Chest radiographs, 2 views. COMPARISON: Chest radiograph 04/19/2018. FINDINGS: Cardiovascular/Mediastinum: Normal heart size. Unremarkable. Lungs: No focal consolidation. Linear band like opacification of the lungs bilaterally, likely subsegmental atelectasis and/or scarring. Airways: Trachea remains midline. Pleura: No pleural effusions or pneumothorax. Bones: No acute osseous abnormalities. Upper abdomen: Unremarkable. IMPRESSION: No acute cardiopulmonary process. Labs are reassuring though proBNP is elevated at 5473 - alcohol verses more chronic AFib? Heart rate did improve to less than 100 and then increased again. Blood pressure was stable. Given dose of Eliquis as well in the emergency department. Discussed case with cardiology for follow-up. See patient discharge plan for further discussion. Also given course of prednisone for residual cough/bronchitis Stay well hydrated with water. Dehydration can play a role in perpetuating/triggering atrial fibrillation. I did speak with Cardiology through [facility] today. Specifically Dr. Zavala. I would anticipate them reaching out to schedule a follow-up with you. If you do not hear from them ([facility]) by Wednesday please call them to schedule. Your primary care provider could also help you with this. Please ask your primary care provider also to schedule an outpatient echocardiogram before this Cardiology appointment. Prescribing a rate control medication called metoprolol to take twice a day. You are receiving this as a pill before you go. You also got a pill of apixaban (also known as Eliquis) which is your blood thinner. Best wishes with your continue smoking cessation has sobriety. Medical Records Medical records reviewed: Yes I reviewed the patient's medical records Lab Data Lab results reviewed: Yes I reviewed the patient's lab results Labs: Lab Results 05/09/24 05/09/24 Range/Units 13:45 13:55 WBC 7.83 (4.50-11.00) K/uL RBC 4.75 (4.30-5.90) m/uL Hgb 14.8 (13.5-17.5) gm/dL Hct 45.4 (37.0-53.0) % MCV 96 (80-100) fL MCH 31 (26-34) pg MCHC 33 (32-36) gm/dL RDW Coeff of Sasha 14.5 (11.5-15.5) % Plt Count 168 (140-440) K/uL Neut % (Auto) 53.5 (42.0-72.0) % Lymph % (Auto) 35.5 (20-44) % [place] % (Auto) 7.0 (0.0-11.0) % Eos % (Auto) 3.1 (0.0-7.0) % Baso % (Auto) 0.6 (0.0-3.0) % Neut # (Auto) 4.19 (1.7-7.0) K/uL Lymph # (Auto) 2.78 (0.90-2.90) K/uL [place] # (Auto) 0.50 (0.00-0.90) K/UL Eos # (Auto) 0.24 (0.00-0.50) K/uL Baso # (Auto) 0.05 (0.00-0.30) K/uL Abs Immat Gran (auto) 0.02 (0.00-0.30) K/uL Imm/Tot Granulo (auto) 0.3 % Sodium 135 (135-149) mmol/L Potassium 4.3 (3.6-5.1) mmol/L Chloride 105 (96-114) mmol/L Carbon Dioxide 27 (20-32) mmol/L Anion Gap 3 L (7-15) mEq/L BUN 20 (7-30) mg/dL Creatinine 0.9 (0.5-1.5) mg/dL Estimated Creat Clear 81.91 Estimated GFR 95 ml/min Glucose 87 (60-115) mg/dL Calcium 8.4 (8.4-10.6) mg/dL NT-Pro-B Natriuret Pep 5470 pg/mL TSH 0.751 (0.270-4.20) uIU/mL SARS-CoV-2 (PCR) Negative SARS-CoV-2 (Negative) Influenza Type A (PCR) Negative PCR FLU A (Negative) Influenza Type B (PCR) Negative PCR FLU B (Negative) RSV (PCR) Negative PCR RSV (Negative) Lab Acknowledgement Test Added Critical Care Time Critical Care Time Critical Care Time: Yes Attestation: The patient required my highest level preparedness to intervene emergently and I personally spent this critical care time directly and personally managing the patient. This critical care time included: Obtaining a history; Examining the patient; Pulse oximetry; Ordering and reviewing of studies; Arranging urgent treatment with development of a management plan; Evaluation of patients response to treatment; Frequent reassessment discussions with other providers. This critical care time was performed to assess and manage the high probability of imminent life-threatening deterioration that could result in multiorgan failure. It was exclusive of separate billable procedures and treating other patients and teaching time. Total Critical Care Time in Minutes: 45 Discharge Plan Discharge Clinical Impression: Atrial fibrillation with rapid ventricular response, Cough Patient Disposition: Home w/ Parent or Adult Condition: Improved Additional Instructions: Stay well hydrated with water. Dehydration can play a role in perpetuating/triggering atrial fibrillation. I did speak with Cardiology through [facility] today. Specifically Dr. Zavala. I would anticipate them reaching out to schedule a follow-up with you. If you do not hear from them ([facility]) by Wednesday please call them to schedule. Your primary care provider could also help you with this. Please ask your primary care provider also to schedule an outpatient echocardiogram before this Cardiology appointment. Prescribing a rate control medication called metoprolol to take twice a day. You are receiving this as a pill before you go. You also got a pill of apixaban (also known as Eliquis) which is your blood thinner. Best wishes with your continue smoking cessation has sobriety. Prescriptions: New prednisone 20 mg tablet 40 mg PO DAILY Qty: 10 0RF apixaban 5 mg tablet 5 mg PO BID Qty: 42 0RF metoprolol tartrate 25 mg tablet 25 mg PO BID Qty: 60 2RF Follow Up/Referrals: MARCIE WREN DO [Primary Care Provider] - Stand Alone Forms: Screenth Info Instructions
--- NOTE | 2024-05-09 13:49 | CRLHL7_ITS ---
For Patients: As a result of the Century Cures Act, medical imaging exams and procedure reports are released immediately into your electronic medical record. You may view this report before your referring provider. If you have questions, please contact your health care provider. INDICATION: Dyspnea. Cough. TECHNIQUE: Chest radiographs, 2 views. COMPARISON: Chest radiograph 04/19/2018. FINDINGS: Cardiovascular/Mediastinum: Normal heart size. Unremarkable. Lungs: No focal consolidation. Linear band like opacification of the lungs bilaterally, likely subsegmental atelectasis and/or scarring. Airways: Trachea remains midline. Pleura: No pleural effusions or pneumothorax. Bones: No acute osseous abnormalities. Upper abdomen: Unremarkable. IMPRESSION: No acute cardiopulmonary process. Dictated by Ashish Leon MD @ 05/09/2024 2:19:02 PM (Electronically Signed)
[2024-05-09] MEDS: 0.9 % SODIUM CHLORIDE 1000 ml 1,000 ML IV (14:04)
[2024-05-09 14:08] LABS: Basophils Absolute Auto 0.05 K/uL (0.00-0.30); Basophils Percent Auto 0.6 % (0.0-3.0); Eosinophils Absolute Auto 0.24 K/uL (0.00-0.50); Eosinophils Percent Auto 3.1 % (0.0-7.0); Hematocrit 45.4 % (37.0-53.0); Hemoglobin* 14.8 gm/dL (13.5-17.5); Immature Granulocytes Abs Auto 0.02 K/uL (0.00-0.30); Immature Granulocytes Pct Auto 0.3 %; Lymphocytes Absolute Auto 2.78 K/uL (0.90-2.90); Lymphocytes Percent Auto 35.5 % (20-44); Mean Corpuscular HGB Conc 33 gm/dL (32-36); Mean Corpuscular Hemoglobin 31 pg (26-34); Mean Corpuscular Volume 96 fL (80-100); Neutrophils Absolute Auto 4.19 K/uL (1.7-7.0); Neutrophils Percent Auto 53.5 % (42.0-72.0); Platelet Count* 168 K/uL (140-440); RDW Coefficient of Variation % 14.5 % (11.5-15.5); Red Blood Count 4.75 m/uL (4.30-5.90); White Blood Count* 7.83 K/uL (4.50-11.00)
[2024-05-09 14:23] LABS: Slide Review Reflex No
[2024-05-09] MEDS: METOPROLOL TARTRATE 1 MG/ML inj 5 MG IVP (14:31)
[2024-05-09 14:50] LABS: PCR FLU A Negative PCR FLU A (Negative); PCR FLU B Negative PCR FLU B (Negative); PCR RSV Negative PCR RSV (Negative); SARS PCR* Negative SARS-CoV-2 (Negative)
[2024-05-09] MEDS: APIXABAN 5 MG TABLET PO (14:53)
[2024-05-09 14:54] LABS: Chloride* 105 mmol/L (96-114); Potassium* 4.3 mmol/L (3.6-5.1); Sodium* 135 mmol/L (135-149)
[2024-05-09 14:57] LABS: Anion Gap 3 mEq/L (7-15); Blood Urea Nitrogen* 20 mg/dL (7-30); Carbon Dioxide* 27 mmol/L (20-32); Creatinine* 0.9 mg/dL (0.5-1.5); Est. Creatinine Clearance* 81.91; Estimated Glomerular Filt Rate 95 ml/min; Glucose* 87 mg/dL (60-115)
[2024-05-09 14:58] LABS: Calcium* 8.4 mg/dL (8.4-10.6)
[2024-05-09 15:15] LABS: NT Pro B Type NatriureticPept* 5470 pg/mL
--- OUTSIDE RECORDS SUMMARY | 2024-05-09 15:19 | XMS_ITS ---
Author Organization [facility] Address [address] [place] [address] Care Team Providers Care Pit Shoveler Name Role Phone Unavailable Unavailable Unavailable Surgery Details Not on file Complications Check Surgery Details section. Procedure Estimated Blood Loss Check Surgery Details section. Procedure Findings Check Surgery Details section. Procedure Specimens Taken Check Surgery Details section.
--- OUTSIDE RECORDS SUMMARY | 2024-05-09 15:19 | XMS_ITS | Encounter Summary ---
Author Organization [facility] Address [address] [place] [address] Care Team Providers Care Cover Creaser Name Role Phone Elsewhere, Pcp Primary Care Provider Unavailabl e Reason for Visit * Reason Comments Cough Patient presents wit h a cough for two weeks. States he was given meds for bronchitis (prednisone and tesslon pearls) and it's not working, I need Amoxicillin. Encounter Details Date Type Department Care Team ([facility] st Contact Info) Description 2024 8:[address] MECHANIC - 2024 10:[address] MECHANIC Emergency [place] [facility] [address] [place] [phone] Kaur Hagen, TELECINE OPERATOR, C.N.P. [address] [place] [phone] Cough Acute (Primary Dx); Elevated Blood Pressure; [...] on file Legal Sex Male 5:[address]CHANIC Gender Identity Not on file Sexual Orientation Not on file documented as of this encounter Last Filed Vital Signs Vital Sign Reading Time Taken Comments Blood Pressure 135/87 2024 10:[address] MECHANIC Pulse 73 2024 10:[address] MECHANIC Temperature 36.3 C (97.3 F) 2024 8:[address] MECHANIC Respiratory Rate 20 2024 8:[address] MECHANIC Oxygen Saturation 98% 2024 8:[address] MECHANIC Inhaled Oxygen Concentration - - Weight 90.2 kg (198 lb 12.8 oz) 2024 8:[address] MECHANIC Height 179.1 cm (5' 10.5) 2024 8:36 AM CS T Body Mass Index 28.12 2024 8:[address] MECHANIC documented in this encounter Discharge Instructions * Discharge Instructions* Kaur Hagen APRN, C.N.P. - 2024 9:[address] MECHANIC Follow up with primary care provider for [...] speaking, swallowing or any other emergent concern. MECHANIC * Attachments The following attachments cannot be sent through Care Everywhere. * Hypertension Adult [id number] ([place]) * Cough Adult ([place]) documented in this encounter Medications at Time [...] discussed and reviewed in AVS. Discharged from [facility] in vitally stable improved respiratory and anxious condition. Kaur Hagen APRN, C.N.P. 05/07/24 1013 MECHANIC documented in this encounter Plan of Treatment [...] 1 doseIndications:Cough Acute Given 2024 9:[address] MECHANIC 3 mL Mouth documented in this encounter Active and Recently Administered Medications Times are shown in ROAD MECHANIC. Scheduled Medication Order 05/05/2024 05/06/2024 2024 ipratropium-albuteroL 0.5-2.5 mg/3 mL nebulizer solution 3 mL (DuoNeb) (COMPLETED) 3 mL, nebulization, Once, On 05/07/24 at 0922, For 1 dose 0930 (Given - Provid er: Sae GreenMBrittanieABrittanie) documented in this encounter Additional Health Concerns Assessment Noted Time PHQ-9 Depression Total Score: 18 018 10:[address] MECHANIC documented as of this encounter Care Teams Cover Creaser Relationship Specialty Start Date End Date Elsewhere, Pcp PCP - General Internal Medicine 02/21/19 documented as of this encounter
--- OUTSIDE RECORDS SUMMARY | 2024-05-09 15:19 | XMS_ITS | Clinical Summary ---
Author Organization [facility] Address [place], [place] [address] Care Team Providers Care Greenhouse Instructor Name Role Phone Bernard Ohara DO Primary Care Provider [phone] Allergies Active Allergy Reactions Criticality Noted Date [...] Department Care Team Description 05/09/2024 12:30 PM REDUCING MACHINE OPERATOR Office Visit [facility] [address] [place] [address] Mariela Schmitz PA Breathing Problem (Patient was seen in ED ON 04/28/24- 05/07/24 for cough and breathing issues, patient still has trouble BREATHING CANT SLEEP /BODY ACHES x 2 weeks, patient was given medication it helps a little bit /) 05/09/2024 Orders Only [facility] [address] [place] [address] Mariela Schmitz PA 1 scan: (1-Ord) EKG, [facility], 05/09/24 05/09/2024 Travel from Last 3 Months Immunizations [...] on file Legal Sex Male 5:42 AM REDUCING MACHINE OPERATOR Gender Identity Not on file Sexual Orientation Not on file Obstetrics History Last Filed Vital Signs Vital Sign Reading Time Taken Comments Blood Pressure 128/84 05/09/2024 12:31 PM REDUCING MACHINE OPERATOR Pulse 57 05/09/2024 12:31 PM REDUCING MACHINE OPERATOR Temperature 37.1 C (98.8 F) 05/09/2024 12:31 PM REDUCING MACHINE OPERATOR Respiratory Rate 16 10/27/2022 2:33 PM CDT Oxygen Saturation 97% 05/09/2024 12: 31 PM REDUCING MACHINE OPERATOR Inhaled Oxygen Concentration - - Weight 92.1 kg (203 lb 1.6 oz) 05/09/19 12:31 PM REDUCING MACHINE OPERATOR Height 182 cm (5' 11.65) 05/09/2024 12 :31 PM REDUCING MACHINE OPERATOR with shoes Body Mass Index 27.81 05/09/2024 12:31 PM REDUCING MACHINE OPERATOR Plan of Treatment Health Maintenance Due Date [...] Procedure Name Priority Date/Time Associated Diagnosis Comments EKG 12 LEAD Routine 05/09/2024 Irregular heartbeat COLONOSCOPY SCREENING Routine 10/27/2022 1:21 PM CDT Screen for colon cancer LIPID PANEL W REFLEX MEASURED LDL Routine 10/16/2022 4:07 PM CDT Lipid screening from Last 3 Months or Most Recently Relevant to Health Maintenance Results * EKG 12 LEAD (05/09/2024) Mariela PIEDRA EKG ORD Final Result * COLONOSCOPY (10/27/2022 1:18 PM CDT) 10/27/2022 [...] adequate candidate for conscious sedation. The PCF-H190L [id number] was passed through the anus and advanced [...] 1:18 PM Procedure Code(s): --- Professional --- 42182, Colonoscopy, flexible; with removalof tumor(s), polyp(s), or other lesion(s) bysnare technique 45925, 59, Colonoscopy, flexible; withbiopsy, single or multiple Diagnosis Code(s): --- Professional --- Z12.11, Encounter for screening formalignant neoplasm of colon D12.0, Benign neoplasm of cecum D12.2, Benign neoplasm of ascending colon CPT copyright 2021 [employer]. All rights reserved. The codes documented in this report are preliminary and upon columnist/commentator reviewmay be revised to meet current compliance requirements. Scope In: 1:51:32 PM Scope Withdrawal Time 0 hours 10 minutes 22 seconds Scope Out: 2:07:12 PM us Ruslan Aburto MD PROCEDURE ORD Edited Re sult - Final * (ABNORMAL) LIPID PANEL W REFLEX MEASURED LDL (10/16/2022 4:07 PM CDT) CHOLESTEROL,TOTAL 216(H) 100 - 199 mg/dL 10/16/2022 11:08 PM CDT [facility] Comment: Cholesterol, Total Reference Ranges Desirable <200 mg/dL Borderline 200-239 mg/dL High >=240 mg/dL TRIGLYCERIDES 123 <150 mg/dL 10/16/2022 11:08 PM CDT [facility] HDL CHOLESTEROL 40(L) >40 mg/dL 11:08 PM CDT [facility] NON-HDL CHOLESTEROL 176(H) <145 mg/dl 10/16/2022 11:08 PM CDT [facility] CHOL/HDL RATIO 5.40(H) <4.50 10/16/2022 11:08 PM CDT [facility] LDL CHOLESTEROL 151(H) <=130 mg/dL 10/16/2022 11:08 PM CDT [facility] VLDL CHOLESTEROL 25 <=30 mg/dL 10/16/2022 11:08 PM CDT [facility] PROVIDER ORDERED STATUS RANDOM 10/16/2022 11:08 PM CDT [facility] Blood BLOOD SPECIMEN / Unknown Venipuncture / Unknown 10/16/2022 4:07 PM CDT 10/16/2022 4:09 PM CDT us Bernard Ohara DO CHEMISTRY Final Result [facility] [address] [place] [address], [place] from Last 3 Months or Most Recently Relevant to Health Maintenance Care Teams Greenhouse Instructor Relationship Specialty Start Date End Date Bernard Ohara DO [address] [place] [address] PCP - General Family Practice 10/16/22
--- OUTSIDE RECORDS SUMMARY | 2024-05-09 15:19 | XMS_ITS | Referral Summary ---
Author Organization [facility] Address [address] [place] [address] Care Team Providers Care Spareribs Trimmer Name Role Phone Elsewhere, Pcp Primary Care Provider Unavailabl e Source Comments Patient records contain information from all sites at [facility]. For routine questions regarding patient records, call [phone] during business hours, M-F 8:00 AM - 5:00 PM Central Time. Record requests for emergency care only can be directed to [phone] at any time.[facility] Encounters Date Type Department Care Team Description 2024 8:59 AM LOGGING OPERATIONS INSPECTOR - 2024 10:14 AM [facility] Emergency [place] [facility] [address] [place] [phone] Kaur Hagen, JOYCE, C.N.P. Cough Acute (Primary Dx); Elevated Blood Pressure; Adjustment Disorder With Anxious Mood Discharge Disposition: Home or Self Care 04/28/2024 12:40 PM LOGGING OPERATIONS INSPECTOR - 04/28/2024 12:57 PM [facility] Emergency [place] [facility] Department [address] [place] [phone] Lilly Mckenna P.A.-C., P.A. Cough Unspecified Type [...] on file Legal Sex Male 5:17 PM LOGGING OPERATIONS INSPECTOR Gender Identity Not on file Sexual Orientation Not on file Last Filed Vital Signs Vital Sign Reading Time Taken Comments Blood Pressure 135/87 2024 10:09 AM LOGGING OPERATIONS INSPECTOR Pulse 73 2024 10:09 AM LOGGING OPERATIONS INSPECTOR Temperature 36.3 C (97.3 F) 2024 8:33 AM LOGGING OPERATIONS INSPECTOR Respiratory Rate 20 2024 8:33 AM LOGGING OPERATIONS INSPECTOR Oxygen Saturation 98% 2024 8:33 AM LOGGING OPERATIONS INSPECTOR Inhaled Oxygen Concentration - - Weight 90.2 kg (198 lb 12.8 oz) 2024 8:37 AM LOGGING OPERATIONS INSPECTOR Height 179.1 cm (5' 10.5) 2024 8:36 AM CS T Body Mass Index 28.12 2024 8:36 AM LOGGING OPERATIONS INSPECTOR Plan of Treatment Not on file Procedures Procedure Name Priority Date/Time Associated Diagnosis Comments DX CHEST AP OR PA AND LATERAL 2 VIEWS RAD - Semiurgent (Fast; most ED patients; some inpatients) 04/28/2024 12:02 PM LOGGING OPERATIONS INSPECTOR BASIC METABOLIC PANEL, S/P STAT 10/07/2022 6:41 PM CDT Fatigue from Last 3 Months or Most Recently Relevant to Health Maintenance Results * DX Chest AP or PA and Lateral 2 Views (04/28/2024 12:02 PM LOGGING OPERATIONS INSPECTOR) Anatomical Region Laterality Modality Chest, Thoracic RST LOS, Tho racic ARZ LOS, Thoracic FLA LOS N/A Digital Radiography Impressions 04/28/2024 12:06 PM LOGGING OPERATIONS INSPECTOR 1. No active cardiopulmonary disease. 2. 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 Narrative 04/28/2024 12:06 PM LOGGING OPERATIONS INSPECTOR EXAM: DX CHEST AP OR PA AND [...] P.A. LAB BLOOD ADD -ON Final Result [facility] [address] [place] [address], [place] [facility] [address] [place] [address] from Last 3 Months or Most Recently Relevant to Health Maintenance Insurance [facility] [place] [id number] Care Teams Spareribs Trimmer Relationship Specialty Start Date End Date Elsewhere, Pcp PCP - General Internal Medicine 02/21/19
--- OUTSIDE RECORDS SUMMARY | 2024-05-09 15:19 | XMS_ITS | Clinical Summary ---
Author Organization [facility] Address [address] [place] [address] Care Team Providers Care Sheep Farm Manager Name Role Phone Elsewhere, Pcp Primary Care Provider Unavailabl e Source Comments Patient records contain information from all sites at [facility]. For routine questions regarding patient records, call [phone] during business hours, M-F 8:00 AM - 5:00 PM Central Time. Record requests for emergency care only can be directed to [phone] at any time.[facility] Allergies Active Allergy Reactions Criticality Noted Date [...] Department Care Team Description 2024 8:59 AM PROCESS VALIDATION ENGINEER - 2024 10:14 AM [facility] Emergency/Urgent Care Department [address] [place] [phone] Kaur Hagen, JOYCE, C.N.P. Cough Acute (Primary Dx); Elevated Blood Pressure; Adjustment Disorder With Anxious Mood Discharge Disposition: Home or Self Care 04/28/2024 12:40 PM PROCESS VALIDATION ENGINEER - 04/28/2024 12:57 PM [facility] Emergency/Urgent Care Department [address] [place] [phone] Lilly Mckenna P.A.-C., P.A. Cough Unspecified Type [...] on file Legal Sex Male 5:17 PM PROCESS VALIDATION ENGINEER Gender Identity Not on file Sexual Orientation Not on file Last Filed Vital Signs Vital Sign Reading Time Taken Comments Blood Pressure 135/87 2024 10:09 AM PROCESS VALIDATION ENGINEER Pulse 73 2024 10:09 AM PROCESS VALIDATION ENGINEER Temperature 36.3 C (97.3 F) 2024 8:33 AM PROCESS VALIDATION ENGINEER Respiratory Rate 20 2024 8:33 AM PROCESS VALIDATION ENGINEER Oxygen Saturation 98% 2024 8:33 AM PROCESS VALIDATION ENGINEER Inhaled Oxygen Concentration - - Weight 90.2 kg (198 lb 12.8 oz) 2024 8:37 AM PROCESS VALIDATION ENGINEER Height 179.1 cm (5' 10.5) 2024 8:36 AM CS T Body Mass Index 28.12 2024 8:36 AM PROCESS VALIDATION ENGINEER Plan of Treatment Health Maintenance Due Date [...] ED patients; some inpatients) 04/28/2024 12:02 PM PROCESS VALIDATION ENGINEER BASIC METABOLIC PANEL, S/P STAT 10/07/2022 6:41 PM CDT Fatigue from Last 3 Months or Most Recently Relevant to Health Maintenance Results * DX Chest AP or PA and Lateral 2 Views (04/28/2024 12:02 PM PROCESS VALIDATION ENGINEER) Anatomical Region Laterality Modality Chest, Thoracic RST LOS, Tho racic ARZ LOS, Thoracic FLA LOS N/A Digital Radiography Impressions 04/28/2024 12:06 PM PROCESS VALIDATION ENGINEER 1. No active cardiopulmonary disease. 2. 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 Narrative 04/28/2024 12:06 PM PROCESS VALIDATION ENGINEER EXAM: DX CHEST AP OR PA AND [...] P.A. LAB BLOOD ADD -ON Final Result [facility] [address] [place] [address], [facility] NPRG [facility] [address] [place] [address] from Last 3 Months or Most Recently Relevant to Health Maintenance Insurance [facility] GIUSEPPE [place]QUEZ [id number] Care Teams Sheep Farm Manager Relationship Specialty Start Date End Date Elsewhere, Pcp PCP - General Internal Medicine 02/21/19
--- OUTSIDE RECORDS SUMMARY | 2024-05-09 15:19 | XMS_ITS | Encounter Summary ---
Author Organization [facility] Address [address] [place] [address] Care Team Providers Care Broadcast Designer Name Role Phone Elsewhere, Pcp Primary Care [...] st Contact Info) Description 04/28/2024 12:40 PM ASSISTANT MANAGER AIRSIDE OPERATIONS - 04/28/2024 12:57 PM ASSISTANT MANAGER AIRSIDE OPERATIONS Emergency [place] Emergency/Urgent Care Department [address] [place] [phone] Lilly Mckenna P.A.-Victor Hugo., P.A. [address] [place] [phone] Cough Unspecified Type (Primary Dx) Discharge Disposition: [...] on file Legal Sex Male 5:17 PM ASSISTANT MANAGER AIRSIDE OPERATIONS Gender Identity Not on file Sexual Orientation Not on file documented as of this encounter Last Filed Vital Signs Vital Sign Reading Time Taken Comments Blood Pressure 110/88 04/28/2024 11:50 AM ASSISTANT MANAGER AIRSIDE OPERATIONS Pulse 78 04/28/2024 11:46 AM ASSISTANT MANAGER AIRSIDE OPERATIONS Temperature 36.8 C (98.2 F) 04/28/2024 11:46 AM ASSISTANT MANAGER AIRSIDE OPERATIONS Respiratory Rate 18 04/28/2024 11:4 6 AM ASSISTANT MANAGER AIRSIDE OPERATIONS Oxygen Saturation 97% 04/28/2024 11: 46 AM ASSISTANT MANAGER AIRSIDE OPERATIONS Inhaled Oxygen Concentration - - Weight 94.2 kg (207 lb 11.2 oz) 024 11:45 AM ASSISTANT MANAGER AIRSIDE OPERATIONS Height 182.9 cm (6') 04/28/2024 11:45 AM ASSISTANT MANAGER AIRSIDE OPERATIONS Body Mass Index 28.17 04/28/2024 11:45 AM ASSISTANT MANAGER AIRSIDE OPERATIONS documented in this encounter Medications at Time [...] P.A. Lilly Mckenna P.A.-C., P.A. 04/28/24 1300 STANT MANAGER AIRSIDE OPERATIONS documented in this encounter Plan of Treatment Not on file documented as of this encounter Procedures Procedure Name Priority Date/Time Associated Diagnosis Comments DX CHEST AP OR PA AND LATERAL 2 VIEWS RAD - Semiurgent (Fast; most ED patients; some inpatients) 04/28/2024 12:02 PM ASSISTANT MANAGER AIRSIDE OPERATIONS documented in this encounter Results * DX Chest AP or PA and Lateral 2 Views (04/28/2024 12:02 PM ASSISTANT MANAGER AIRSIDE OPERATIONS) Anatomical Region Laterality Modality Chest, Thoracic RST LOS, Tho racic ARZ LOS, Thoracic FLA LOS N/A Digital Radiography Impressions 04/28/2024 12:06 PM ASSISTANT MANAGER AIRSIDE OPERATIONS 1. No active cardiopulmonary disease. 2. 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 Narrative 04/28/2024 12:06 PM ASSISTANT MANAGER AIRSIDE OPERATIONS EXAM: DX CHEST AP OR PA AND [...] Depression Total Score: 18 018 10:00 AM ASSISTANT MANAGER AIRSIDE OPERATIONS documented as of this encounter Care Teams Broadcast Designer Relationship Specialty Start Date End Date Elsewhere, Pcp PCP - General Internal Medicine 02/21/19 documented as of this encounter
[2024-05-09 15:47] LABS: Thyroid Stimulating Hormone* 0.751 uIU/mL (0.270-4.20)
[2024-05-09] MEDS: METOPROLOL TARTRATE 25 MG TABLET PO (16:32)
== END 2024-05-09 16:40 | disposition home or self-care (01) ==
PROVIDERS: Emergency Provider Family Medicine; PCP Student in an Organized Health Care Education/Training Program
DX: I48.20 Chronic atrial fibrillation, unspecified (principal)
CPT/HCPCS: 36415; 71046; 80048; 83880; 84443; 85025; 87631; 99284; 99285; 99291; A9270; J7030

== ENCOUNTER 2024-05-10 07:53 | Outpatient (CLI) | payer BC, SELFPAY | END 2024-05-10 07:54 | disposition home or self-care (01) | LOC: AMB 05-25 06:08 | PROVIDERS: PCP Student in an Organized Health Care Education/Training Program; Visit Provider Family Medicine | DX: R07.89 Other chest pain (principal); R06.02 Shortness of breath | CPT/HCPCS: A0425; A0427 ==

== ENCOUNTER 2024-05-10 08:44 | Inpatient (IN) | payer BC, SELFPAY ==
[2024-05-10] VITALS (23 sets, daily range): BP systolic 92–123; BP diastolic 72–111; PULSE 55–129; RESP 18–26; TEMP 36.2–37.1; O2SAT 90–98; BMI 27.3
--- OUTSIDE RECORDS SUMMARY | 2024-05-10 08:47 | XMS_ITS | Clinical Summary ---
Author Organization [facility] Address [place], [place] [address] Care Team Providers Care Automotive Glass Specialist Name Role Phone Bernard Ohara DO Primary Care Provider Allergies Active Allergy Reactions Criticality Noted Date [...] Encounters Date Type Department Care Team Description 05/10/2024 Nurse Triage [facility] [address] [place] [address] Mariela Schmitz PA Irregular Heart Beat 05/09/2024 12:30 PM ER PHYSICIAN Office Visit [facility] [address] [place] [address] Mariela Schmitz PA Breathing Problem (Patient was seen in ED ON 04/28/24- 05/07/24 for cough and breathing issues, patient still has trouble BREATHING CANT SLEEP /BODY ACHES x 2 weeks, patient was given medication it helps a little bit /) 05/09/2024 Telephone [facility] [address] [place] [address] [place] [place] 05/09/2024 Telephone [facility] [address] [facility] [address] [place] [address] Juan Zavala MD 05/09/2024 Orders Only [facility] [address] [place] [address] Mariela Schmitz PA 1 scan: (1-Ord) EKG, [facility], 05/09/24 05/09/2024 Travel from Last 3 Months [...] on file Legal Sex Male 5:42 AM ER PHYSICIAN Gender Identity Not on file Sexual Orientation Not on file Obstetrics History Last Filed Vital Signs Vital Sign Reading Time Taken Comments Blood Pressure 128/84 05/09/2024 12:31 PM ER PHYSICIAN Pulse 57 05/09/2024 12:31 PM ER PHYSICIAN Temperature 37.1 C (98.8 F) 05/09/2024 12:31 PM ER PHYSICIAN Respiratory Rate 16 10/27/2022 2:33 PM CDT Oxygen Saturation 97% 05/09/2024 12: 31 PM ER PHYSICIAN Inhaled Oxygen Concentration - - Weight 92.1 kg (203 lb 1.6 oz) 05/09/19 12:31 PM ER PHYSICIAN Height 182 cm (5' 11.65) 05/09/2024 12 :31 PM ER PHYSICIAN with shoes Body Mass Index 27.81 05/09/2024 12:31 PM ER PHYSICIAN Plan of Treatment Upcoming Encounters Date Type Department Care Team (Late st Contact Info) Description 05/16/2024 2:30 PM ER PHYSICIAN Office Visit [address] [place] [address] Olvin Pierre MD [address] [place] [address] Health Maintenance Due Date Last Done Comments HIV for age 15-65 1975 Hepatitis C screening for ag e 18-79 1978 Pneumococcal series for age 50+ (1 of 2 - PCV) 1979 Zoster (shingles) series for age 50+ (1 of 2) 2010 Depression screening for age 12+ 10/21/2023 10/20/2022, 10/16/2022, 10/16/2022 COVID-19 vaccine series ( - season) 2024 09/18/2020 Influenza for age [...] Maintenance Results * EKG 12 LEAD (05/09/2024) us Mariela PIEDRA EKG ORD Final Result * [...] adequate candidate for conscious sedation. The PCF-H190L [id number] was passed through the anus and advanced [...] 1:18 PM Procedure Code(s): --- Professional --- 33604, Colonoscopy, flexible; with removalof tumor(s), polyp(s), or other lesion(s) bysnare technique 99779, 59, Colonoscopy, flexible; withbiopsy, single or multiple Diagnosis Code(s): --- Professional --- Z12.11, Encounter for screening formalignant neoplasm of colon D12.0, Benign neoplasm of cecum D12.2, Benign neoplasm of ascending colon CPT copyright 2021 [employer]. All rights reserved. The codes documented in this report are preliminary and upon distribution field technician reviewmay be revised to meet current compliance requirements. Scope In: 1:51:32 PM Scope Withdrawal Time 0 hours 10 minutes 22 seconds Scope Out: 2:07:12 PM us Ruslan Aburto MD PROCEDURE ORD Edited Re sult - Final * (ABNORMAL) LIPID PANEL W REFLEX MEASURED LDL (10/16/2022 4:07 PM CDT) CHOLESTEROL,TOTAL 216(H) 100 - 199 mg/dL 10/16/2022 11:08 PM CDT [facility] Comment: Cholesterol, Total Reference Ranges Desirable <200 mg/dL Borderline 200-239 mg/dL High >=240 mg/dL TRIGLYCERIDES 123 <150 mg/dL 10/16/2022 11:08 PM CDT [facility] HDL CHOLESTEROL 40(L) >40 mg/dL 11:08 PM CDT [facility] NON-HDL CHOLESTEROL 176(H) <145 mg/dl 10/16/2022 11:08 PM CDT [facility] CHOL/HDL RATIO 5.40(H) <4.50 10/16/2022 11:08 PM CDT [facility] LDL CHOLESTEROL 151(H) <=130 mg/dL 10/16/2022 11:08 PM CDT [facility] VLDL CHOLESTEROL 25 <=30 mg/dL 10/16/2022 11:08 PM CDT [facility] LAB[facility] PROVIDER ORDERED STATUS RANDOM 10/16/2022 11:08 PM CDT [facility] Blood BLOOD SPECIMEN / Unknown Venipuncture / Unknown 10/16/2022 4:07 PM CDT 10/16/2022 4:09 PM CDT us Bernard Ohara DO CHEMISTRY Final Result [facility] [address] [place] [address], [place] from Last 3 Months or Most Recently Relevant to Health Maintenance Care Teams Automotive Glass Specialist Relationship Specialty Start Date End Date Bernard Ohara DO [address] [place] [address] PCP - General Family Practice 10/16/22
--- OUTSIDE RECORDS SUMMARY | 2024-05-10 08:47 | XMS_ITS ---
Author Organization [facility] Address [address] [place] [address] Care Team Providers Care Solderer Electronic Name Role Phone Unavailable Unavailable Unavailable Surgery Details Not on file Complications Check Surgery Details section. Procedure Estimated Blood Loss Check Surgery Details section. Procedure Findings Check Surgery Details section. Procedure Specimens Taken Check Surgery Details section.
--- OUTSIDE RECORDS SUMMARY | 2024-05-10 08:47 | XMS_ITS | Encounter Summary ---
Author Organization [facility] Address [address] [place] [address] Care Team Providers Care Farm Mechanic Apprentice Name Role Phone Elsewhere, Pcp Primary Care Provider Unavailabl e Reason for Visit * Reason Comments Cough Patient presents wit h a cough for two weeks. States he was given meds for bronchitis (prednisone and tesslon pearls) and it's not working, I need Amoxicillin. Encounter Details Date Type Department Care Team ([facility] st Contact Info) Description 2024 8:59 AM MATTRESS STUFFER - 2024 10:14 AM MATTRESS STUFFER Emergency [place] Emergency/Urgent Care Department [address] [place] [phone] Kaur Hagen, PLAQUE MAKER, C.N.P. [address] [place] [phone] Cough Acute (Primary Dx); Elevated Blood Pressure; [...] on file Legal Sex Male 5:17 PM MATTRESS STUFFER Gender Identity Not on file Sexual Orientation Not on file documented as of this encounter Last Filed Vital Signs Vital Sign Reading Time Taken Comments Blood Pressure 135/87 2024 10:09 AM MATTRESS STUFFER Pulse 73 2024 10:09 AM MATTRESS STUFFER Temperature 36.3 C (97.3 F) 2024 8:33 AM MATTRESS STUFFER Respiratory Rate 20 2024 8:33 AM MATTRESS STUFFER Oxygen Saturation 98% 2024 8:33 AM MATTRESS STUFFER Inhaled Oxygen Concentration - - Weight 90.2 kg (198 lb 12.8 oz) 2024 8:37 AM MATTRESS STUFFER Height 179.1 cm (5' 10.5) 2024 8:36 AM CS T Body Mass Index 28.12 2024 8:36 AM MATTRESS STUFFER documented in this encounter Discharge Instructions * Discharge Instructions* Kaur Hagen APRN, C.N.P. - 2024 9:58 AM MATTRESS STUFFER Follow up with primary care provider for [...] speaking, swallowing or any other emergent concern. RESS STUFFER * Attachments The following attachments cannot be sent through Care Everywhere. * Hypertension Adult [id number] (Mongolian) * Cough Adult (Mongolian) documented in this encounter Medications at Time [...] discussed and reviewed in AVS. Discharged from [facility] in vitally stable improved respiratory and anxious condition. Kaur Hagen APRN, C.N.P. 05/07/24 1013 RESS STUFFER documented in this encounter Plan of Treatment [...] 1 doseIndications:Cough Acute Given 2024 9:30 AM MATTRESS STUFFER 3 mL Mouth documented in this encounter Active and Recently Administered Medications Times are shown in MATTRESS STUFFER. Scheduled Medication Order 05/05/2024 05/06/2024 2024 ipratropium-albuteroL 0.5-2.5 mg/3 mL nebulizer solution 3 mL (DuoNeb) (COMPLETED) 3 mL, nebulization, Once, On 05/07/24 at 0922, For 1 dose 0930 (Given - Provid er: Sae GreenMBrittanieABrittanie) documented in this encounter Additional Health Concerns Assessment Noted Time PHQ-9 Depression Total Score: 18 018 10:00 AM MATTRESS STUFFER documented as of this encounter Care Teams Farm Mechanic Apprentice Relationship Specialty Start Date End Date Elsewhere, Pcp PCP - General Internal Medicine 02/21/19 documented as of this encounter
--- OUTSIDE RECORDS SUMMARY | 2024-05-10 08:47 | XMS_ITS | Referral Summary ---
Author Organization [facility] Address [address] [place] [address] Care Team Providers Care Assistant Infant Teacher Name Role Phone Elsewhere, Pcp Primary Care Provider Unavailabl e Source Comments Patient records contain information from all sites at [facility]. For routine questions regarding patient records, call [phone] during business hours, M-F 8:00 AM - 5:00 PM Central Time. Record requests for emergency care only can be directed to [phone] at any time.[facility] Encounters Date Type Department Care Team Description 2024 8:59 AM QUANTOMETER OPERATOR - 2024 10:14 AM [facility] Emergency [place] Emergency/Urgent Care Department [address] [place] [phone] Kaur Hagen, JOYCE, C.N.P. Cough Acute (Primary Dx); Elevated Blood Pressure; Adjustment Disorder With Anxious Mood Discharge Disposition: Home or Self Care 04/28/2024 12:40 PM QUANTOMETER OPERATOR - 04/28/2024 12:57 PM [facility] Emergency [place] Emergency/Urgent Care Department [address] [place] [phone] Lilly Mckenna P.A.-C., P.A. Cough Unspecified Type [...] on file Legal Sex Male 5:17 PM QUANTOMETER OPERATOR Gender Identity Not on file Sexual Orientation Not on file Last Filed Vital Signs Vital Sign Reading Time Taken Comments Blood Pressure 135/87 2024 10:09 AM QUANTOMETER OPERATOR Pulse 73 2024 10:09 AM QUANTOMETER OPERATOR Temperature 36.3 C (97.3 F) 2024 8:33 AM QUANTOMETER OPERATOR Respiratory Rate 20 2024 8:33 AM QUANTOMETER OPERATOR Oxygen Saturation 98% 2024 8:33 AM QUANTOMETER OPERATOR Inhaled Oxygen Concentration - - Weight 90.2 kg (198 lb 12.8 oz) 2024 8:37 AM QUANTOMETER OPERATOR Height 179.1 cm (5' 10.5) 2024 8:36 AM CS T Body Mass Index 28.12 2024 8:36 AM QUANTOMETER OPERATOR Plan of Treatment Not on file Procedures Procedure Name Priority Date/Time Associated Diagnosis Comments DX CHEST AP OR PA AND LATERAL 2 VIEWS RAD - Semiurgent (Fast; most ED patients; some inpatients) 04/28/2024 12:02 PM QUANTOMETER OPERATOR BASIC METABOLIC PANEL, S/P STAT 10/07/2022 6:41 PM CDT Fatigue from Last 3 Months or Most Recently Relevant to Health Maintenance Results * DX Chest AP or PA and Lateral 2 Views (04/28/2024 12:02 PM QUANTOMETER OPERATOR) Anatomical Region Laterality Modality Chest, Thoracic RST LOS, Tho racic ARZ LOS, Thoracic FLA LOS N/A Digital Radiography Impressions 04/28/2024 12:06 PM QUANTOMETER OPERATOR 1. No active cardiopulmonary disease. 2. 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 Narrative 04/28/2024 12:06 PM QUANTOMETER OPERATOR EXAM: DX CHEST AP OR PA AND [...] P.A. LAB BLOOD ADD -ON Final Result [facility] [address] [place] [address], [place] NPR[facility] [address] [place] [address] from Last 3 Months or Most Recently Relevant to Health Maintenance Insurance [facility] GIUSEPPE [place]QUEZ [id number] Care Teams Assistant Infant Teacher Relationship Specialty Start Date End Date Elsewhere, Pcp PCP - General Internal Medicine 02/21/19
--- OUTSIDE RECORDS SUMMARY | 2024-05-10 08:47 | XMS_ITS | Encounter Summary ---
Author Organization [facility] Address [address] [place] [address] Care Team Providers Care Advanced Practice Provider Name Role Phone Elsewhere, Pcp Primary Care [...] st Contact Info) Description 04/28/2024 12:40 PM BLACK TOP SPREADER MACHINE OPERATOR - 04/28/2024 12:57 PM BLACK TOP SPREADER MACHINE OPERATOR Emergency [place] Emergency/Urgent Care Department [address] [place] [phone] Lilly Mckenna P.A.-Victor Hugo., P.A. [address] [place] [phone] Cough Unspecified Type (Primary Dx) Discharge Disposition: [...] on file Legal Sex Male 5:17 PM BLACK TOP SPREADER MACHINE OPERATOR Gender Identity Not on file Sexual Orientation Not on file documented as of this encounter Last Filed Vital Signs Vital Sign Reading Time Taken Comments Blood Pressure 110/88 04/28/2024 11:50 AM BLACK TOP SPREADER MACHINE OPERATOR Pulse 78 04/28/2024 11:46 AM BLACK TOP SPREADER MACHINE OPERATOR Temperature 36.8 C (98.2 F) 04/28/2024 11:46 AM BLACK TOP SPREADER MACHINE OPERATOR Respiratory Rate 18 04/28/2024 11:4 6 AM BLACK TOP SPREADER MACHINE OPERATOR Oxygen Saturation 97% 04/28/2024 11: 46 AM BLACK TOP SPREADER MACHINE OPERATOR Inhaled Oxygen Concentration - - Weight 94.2 kg (207 lb 11.2 oz) 024 11:45 AM BLACK TOP SPREADER MACHINE OPERATOR Height 182.9 cm (6') 04/28/2024 11:45 AM BLACK TOP SPREADER MACHINE OPERATOR Body Mass Index 28.17 04/28/2024 11:45 AM BLACK TOP SPREADER MACHINE OPERATOR documented in this encounter Medications at Time [...] P.A. Lilly Mckenna P.A.-C., P.A. 04/28/24 1300 K TOP SPREADER MACHINE OPERATOR documented in this encounter Plan of Treatment Not on file documented as of this encounter Procedures Procedure Name Priority Date/Time Associated Diagnosis Comments DX CHEST AP OR PA AND LATERAL 2 VIEWS RAD - Semiurgent (Fast; most ED patients; some inpatients) 04/28/2024 12:02 PM BLACK TOP SPREADER MACHINE OPERATOR documented in this encounter Results * DX Chest AP or PA and Lateral 2 Views (04/28/2024 12:02 PM BLACK TOP SPREADER MACHINE OPERATOR) Anatomical Region Laterality Modality Chest, Thoracic RST LOS, Tho racic ARZ LOS, Thoracic FLA LOS N/A Digital Radiography Impressions 04/28/2024 12:06 PM BLACK TOP SPREADER MACHINE OPERATOR 1. No active cardiopulmonary disease. 2. 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 Narrative 04/28/2024 12:06 PM BLACK TOP SPREADER MACHINE OPERATOR EXAM: DX CHEST AP OR PA [...] Depression Total Score: 18 018 10:00 AM BLACK TOP SPREADER MACHINE OPERATOR documented as of this encounter Care Teams Advanced Practice Provider Relationship Specialty Start Date End Date Elsewhere, Pcp PCP - General Internal Medicine 02/21/19 documented as of this encounter
--- OUTSIDE RECORDS SUMMARY | 2024-05-10 08:47 | XMS_ITS | Clinical Summary ---
Author Organization [facility] Address [address] [place] [address] Care Team Providers Care Design Supervisor Name Role Phone Elsewhere, Pcp Primary Care Provider Unavailabl e Source Comments Patient records contain information from all sites at [facility]. For routine questions regarding patient records, call [phone] during business hours, M-F 8:00 AM - 5:00 PM Central Time. Record requests for emergency care only can be directed to [phone] at any time.[facility] Allergies Active Allergy Reactions Criticality Noted Date [...] Department Care Team Description 2024 8:59 AM METAL SPINNER - 2024 10:14 AM [facility] Emergency/Urgent Care Department [address] [place] [phone] Kaur Hagen, JOYCE, C.N.P. Cough Acute (Primary Dx); Elevated Blood Pressure; Adjustment Disorder With Anxious Mood Discharge Disposition: Home or Self Care 04/28/2024 12:40 PM METAL SPINNER - 04/28/2024 12:57 PM [facility] Emergency/Urgent Care Department [address] [place] [phone] Lilly Mckenna P.A.-C., P.A. Cough Unspecified Type [...] on file Legal Sex Male 5:17 PM METAL SPINNER Gender Identity Not on file Sexual Orientation Not on file Last Filed Vital Signs Vital Sign Reading Time Taken Comments Blood Pressure 135/87 2024 10:09 AM METAL SPINNER Pulse 73 2024 10:09 AM METAL SPINNER Temperature 36.3 C (97.3 F) 2024 8:33 AM METAL SPINNER Respiratory Rate 20 2024 8:33 AM METAL SPINNER Oxygen Saturation 98% 2024 8:33 AM METAL SPINNER Inhaled Oxygen Concentration - - Weight 90.2 kg (198 lb 12.8 oz) 2024 8:37 AM METAL SPINNER Height 179.1 cm (5' 10.5) 2024 8:36 AM CS T Body Mass Index 28.12 2024 8:36 AM METAL SPINNER Plan of Treatment Health Maintenance Due Date [...] ED patients; some inpatients) 04/28/2024 12:02 PM METAL SPINNER BASIC METABOLIC PANEL, S/P STAT 10/07/2022 6:41 PM CDT Fatigue from Last 3 Months or Most Recently Relevant to Health Maintenance Results * DX Chest AP or PA and Lateral 2 Views (04/28/2024 12:02 PM METAL SPINNER) Anatomical Region Laterality Modality Chest, Thoracic RST LOS, Tho racic ARZ LOS, Thoracic FLA LOS N/A Digital Radiography Impressions 04/28/2024 12:06 PM METAL SPINNER 1. No active cardiopulmonary disease. 2. 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 Narrative 04/28/2024 12:06 PM METAL SPINNER EXAM: DX CHEST AP OR PA AND [...] LAB BLOOD ADD -ON Final Result [facility] [address] [place] [address], [facility] NPRG [facility] [address] [place] [address] from Last 3 Months or Most Recently Relevant to Health Maintenance Insurance [facility] GIUSEPPE MANRIQUEZ [id number] Care Teams Design Supervisor Relationship Specialty Start Date End Date Elsewhere, Pcp PCP - General Internal Medicine 02/21/19
--- OUTSIDE RECORDS SUMMARY | 2024-05-10 08:48 | XMS_ITS | Continuity of Care Document ---
Author Name NwHIN User [place]le[place]-a llowed Address Unknown Organization Unknown Address Unknown Encounters FILTER APPLIED:Only known Encounters with Admission Date within the last 5 years Encounter Location Admission Discharge Billing Code Produce Service Team Member Benitez moe Emergency
--- NOTE | 2024-05-10 08:58 | ED.GENADULT ---
HPI - General Adult General Chief complaint: Shortness of Breath/Dyspnea Stated complaint: Difficulty Breathing Time Seen by Provider: 05/10/24 08:58 History of Present Illness HPI narrative: Patient sick with respiratory illness since . Went to [facility] clinic yesterday, found to be in new-onset Afib. Came to ED last night for workup. Patient notes he's still very short of breath . Occasional episodes of chest pain, epigastric, like tightness . He's scheduled with Cardiology on . EMS administered 324 ASA, put patient on 2L O2 for comfort. Blood glucose 171. Patient denies pain presently. 64-year-old man returning to the emergency department with concern of shortness of breath He says he did not sleep all night. He says he was short of breath soon as he hit the cold air outside after leaving here yesterday evening. He has filled his medications. Took though only a half dose of the prednisone yesterday. Cardiology had recommended 25 mg of metoprolol which he has taken. Mr. Farmer says he was ?rockin' and kostas'? all night and did not sleep. Did even have some looser diarrheal stools which he would attribute to nerves. Just kept having episodes of feeling more intensely short of breath. Some tightness as well through the chest. Not significantly lightheaded. He says that EMS this morning gave him some nitro although I do not see that noted on triage, just aspirin and oxygen. Is not having chest pain or shortness of breath at this time, at rest. Does not sound as though there was a lot of coughing overnight. Reveals later that he had called in to clinic to try to schedule with his primary care provider in given his concerns was redirected back to the emergency department. Related Data Home Medications ?Medication ?Instructions ?Recorded ?Confirmed albuterol sulfate 90 mcg/actuation 2 puff inhalation Q4H PRN 05/10/24 05/10/24 aerosol inhaler doxycycline monohydrate 100 mg 100 mg PO BID 05/10/24 05/10/24 capsule hydroxyzine HCl 10 mg tablet 10 mg PO Q6H PRN 05/10/24 05/10/24 prednisone 20 mg tablet 40 mg PO DAILY 05/10/24 05/10/24 Previous Rx's ?Medication ?Instructions ?Recorded apixaban 5 mg tablet 5 mg PO BID #42 tabs 01/07/25 metoprolol tartrate 25 mg tablet 25 mg PO BID #60 tabs 05/09/24 Allergies Allergy/AdvReac Type Severity Reaction Status Date / Time No Known Drug Allergies Allergy Verified 05/10/24 13:07 Review of Systems Status of ROS: Reports: 6 or more systems reviewed and unremarkable except as noted in History and below PFSH PFS Social History What is your current living situation?: I presently have a place to live Problems where you live: no known problems Problems where you live details: none In the past 12 months, utilities in danger of being shut off: no In past 12 months, lack of transportation kept you from medical appts, meetings, work, or getting things needed for daily living: no In the past 12 mos, have been you worried that your food would run out before you had money to buy more?: never true In the past 12 mos, the food you bought just didn't last and you didn't have money to buy more?: never true Highest level of school completed/degree received: Associate degree: occupational, technical, vocational program Smoking Status: Former smoker Do you use any of these nicotine containing products: None How often do you have a drink containing alcohol: 2-4 times a month How many standard drinks containing alcohol do you have on a typical day: 1 or 2 How often do you have six or more drinks on one occasion: Never AUDIT-C Alcohol total score: 2 Non-prescribed substance use: denies use How often does anyone, including family, friends and others, physically hurt you: never How often does anyone, including family, friends and others, insult or talk down to you: never How often does anyone, including family, friends and others, threaten you with harm: never How often does anyone, including family, friends and others, scream or curse at you: never Exam Narrative: Exam Narrative: Of good energy. Animated. Heart in tachycardic and irregularly irregular rhythm. No murmur noted. Abdomen is soft nontender. Mildly labored in breathing. Bibasilar trace crepitus. No wheeze. Extremities without edema. Well-perfused. Const: Vital Signs, click to edit/add: Vital Signs - 24 hr 05/10/24 08:53 05/10/24 09:00 05/10/24 09:32 Temperature 97.4 F L Pulse Rate 92 103 H Pulse Rate [Pulse Oximeter] 121 H Pulse Rate [orthos tatic lying Pulse Oximeter] Pulse Rate [orthos tatic sitting Puls e Oximeter] Pulse Rate [orthos tatic standing Pul se Oximeter] Respiratory Rate 20 22 22 Blood Pressure 120/105 H 92/72 Blood Pressure [Ri ght Upper Arm] 119/104 H Blood Pressure [or thostatic lying Le ft Arm] Blood Pressure [or thostatic sitting Left Arm] Blood Pressure [or thostatic standing Left Arm] Pulse Oximetry 95 96 96 Oxygen Delivery Me thod Room Air Room Air 05/10/24 10:02 05/10/24 10:32 05/10/24 11:08 Temperature Pulse Rate 114 H 102 H 88 Pulse Rate [Pulse Oximeter] Pulse Rate [orthos tatic lying Pulse Oximeter] Pulse Rate [orthos tatic sitting Puls e Oximeter] Pulse Rate [orthos tatic standing Pul se Oximeter] Respiratory Rate 26 H 20 24 Blood Pressure 98/87 114/81 107/95 H Blood Pressure [Ri ght Upper Arm] Blood Pressure [or thostatic lying Le ft Arm] Blood Pressure [or thostatic sitting Left Arm] Blood Pressure [or thostatic standing Left Arm] Pulse Oximetry 95 95 93 Oxygen Delivery Me thod Room Air 05/10/24 11:17 05/10/24 11:20 05/10/24 11:36 Temperature Pulse Rate 90 115 H Pulse Rate [Pulse Oximeter] Pulse Rate [orthos tatic lying Pulse Oximeter] 129 H Pulse Rate [orthos tatic sitting Puls e Oximeter] 126 H Pulse Rate [orthos tatic standing Pul se Oximeter] 110 H Respiratory Rate 18 20 Blood Pressure 109/95 H 101/89 Blood Pressure [Ri ght Upper Arm] Blood Pressure [or thostatic lying Le ft Arm] 109/95 H Blood Pressure [or thostatic sitting Left Arm] 103/75 Blood Pressure [or thostatic standing Left Arm] 112/88 Pulse Oximetry 96 95 Oxygen Delivery Me thod 05/10/24 12:04 05/10/24 13:02 05/10/24 13:32 Temperature Pulse Rate 55 L 112 H 96 Pulse Rate [Pulse Oximeter] Pulse Rate [orthos tatic lying Pulse Oximeter] Pulse Rate [orthos tatic sitting Puls e Oximeter] Pulse Rate [orthos tatic standing Pul se Oximeter] Respiratory Rate 18 20 22 Blood Pressure 112/90 H 97/87 94/78 Blood Pressure [Ri ght Upper Arm] Blood Pressure [or thostatic lying Le ft Arm] Blood Pressure [or thostatic sitting Left Arm] Blood Pressure [or thostatic standing Left Arm] Pulse Oximetry 94 98 93 Oxygen Delivery Me thod 05/10/24 14:07 05/10/24 14:32 05/10/24 15:03 Temperature Pulse Rate 86 89 82 Pulse Rate [Pulse Oximeter] Pulse Rate [orthos tatic lying Pulse Oximeter] Pulse Rate [orthos tatic sitting Puls e Oximeter] Pulse Rate [orthos tatic standing Pul se Oximeter] Respiratory Rate 22 22 24 Blood Pressure 113/99 H 123/97 H 123/111 H Blood Pressure [Ri ght Upper Arm] Blood Pressure [or thostatic lying Le ft Arm] Blood Pressure [or thostatic sitting Left Arm] Blood Pressure [or thostatic standing Left Arm] Pulse Oximetry 91 95 97 Oxygen Delivery Me thod 05/10/24 15:34 Temperature Pulse Rate 94 Pulse Rate [Pulse Oximeter] Pulse Rate [orthos tatic lying Pulse Oximeter] Pulse Rate [orthos tatic sitting Puls e Oximeter] Pulse Rate [orthos tatic standing Pul se Oximeter] Respiratory Rate 22 Blood Pressure 117/101 H Blood Pressure [Ri ght Upper Arm] Blood Pressure [or thostatic lying Le ft Arm] Blood Pressure [or thostatic sitting Left Arm] Blood Pressure [or thostatic standing Left Arm] Pulse Oximetry 91 Oxygen Delivery Me thod Documenting provider has reviewed patient's vital signs: yes Course Vital Signs Vital signs: Initial Vital Signs Temperature 97.4 F L 05/10/24 08:53 Temperature Source Temporal Artery Scan 05/10/24 08:53 Pulse Rate 121 H 05/10/24 08:53 Pulse Rhythm Irregular 05/10/24 08:53 Respiratory Rate 20 05/10/24 08:53 Blood Pressure 119/104 H 05/10/24 08:53 Blood Pressure Mean 109 H 05/10/24 08:53 Blood Pressure Position Semi-Fowlers 05/10/24 08:53 Pulse Oximetry 95 05/10/24 08:53 Oxygen Delivery Method Room Air 05/10/24 08:53 Vital Signs Temperature 97.4 F L 05/10/24 08:53 Pulse Rate 121 H 05/10/24 08:53 Respiratory Rate 20 05/10/24 08:53 Blood Pressure 119/104 H 05/10/24 08:53 Pulse Oximetry 95 05/10/24 08:53 Oxygen Delivery Method Room Air 05/10/24 08:53 Temperature 98.8 F 05/10/24 17:02 Pulse Rate 83 05/10/24 17:02 Respiratory Rate 22 05/10/24 18:02 Blood Pressure 110/82 05/10/24 17:02 Pulse Oximetry 97 05/10/24 18:02 Oxygen Delivery Method Room Air 05/10/24 18:02 Medications Administered Medications: Generic Name Dose Route Start Last Admin Trade Name Freq PRN Reason Stop Dose Admin Metoprolol Tartrate 25 mg 05/10/24 16:18 05/10/24 16:23 Metoprolol Tartrate 25 Mg Tablet PO 25 mg Q4H BEATRIZ Administration Discontinued Medications Generic Name Dose Route Start Last Admin Trade Name Freq PRN Reason Stop Dose Admin Albuterol/Ipratropium 1 neb 05/10/24 14:24 05/10/24 14:33 Iprat-Albut 0.5-2.5 Mg/3 Ml Neb IH 05/10/24 14:25 1 neb ONCE ONE Administration Diltiazem HCl 15 mg 05/10/24 17:33 05/10/24 17:42 Diltiazem 5 Mg/Ml Inj IVP 05/10/24 17:34 15 mg ONCE ONE Administration Sodium Chloride 1,000 mls @ 1,000 mls/hr 05/10/24 09:16 05/10/24 10:40 0.9 % Sodium Chloride 1000 Ml IV 05/10/24 10:15 Infused .Q1H ONE Infusion Lorazepam 0.5 mg 05/10/24 09:17 05/10/24 09:30 Lorazepam 2 Mg/Ml Inj IVP 05/10/24 09:18 0.5 mg ONCE ONE Administration Metoprolol Tartrate 50 mg 05/10/24 09:16 05/10/24 10:57 Metoprolol Tartrate 50 Mg Tablet PO 05/10/24 09:17 Not Given ONCE ONE Metoprolol Tartrate 50 mg 05/10/24 09:45 05/10/24 09:30 Metoprolol Tartrate 25 Mg Tablet PO 05/10/24 09:46 50 mg ONCE ONE Administration Prednisone 40 mg 05/10/24 14:25 05/10/24 14:33 Prednisone 20 Mg Tablet PO 05/10/24 14:26 40 mg ONCE ONE Administration Medical Decision Making MDM Narrative Medical decision making narrative: May have been having more rapid rounds of atrial fibrillation? Bouts of anxiety? Ischemic chest pain? Lack of persistence suggests against withdrawal. Does not appear to be short of breath or in distress otherwise being mildly anxious here today. And is tachycardic in the 1 teens to 120 An hour and half after 50 mg of metoprolol and 1 mg lorazepam was given, had ambulated back from bathroom and was having blood drawn again and noted this feeling of heaviness coming over his chest again. Blood pressure checked at that time reported was 109 systolic. Pulse continued to be jumping around just above 100 to 120 or so. Vasovagal? Orthostatics are pending These look good and are asymptomatic I have been unable to coordinate an echocardiogram here today. Due to this and with unclear presentation of symptoms will scan yet his chest. Might find pneumonia or evidence of effusion either pulmonary or pericardial Technique: CT angiogram of the chest was performed for evaluation of pulmonary embolism. 95 mL of Isovue 370 intravenous contrast was administered. Comparison: 05/09/2024. Findings: CARDIOVASCULAR: Diagnostic quality: Contrast opacification of the pulmonary arterial circulation is adequate for assessment of pulmonary embolism. Study is not significantly limited by respiratory motion artifact. Pulmonary arteries: No filling defects to suggest pulmonary embolism. Mildly enlarged, measuring 3.2 centimeter in diameter (). Heart: No interventricular septal deviation. Biatrial enlargement. Mild coronary artery calcification. No significant valvular calcification. Pericardium: No pericardial effusion. Thoracic aorta: No significant abnormality. Four vessel arch. REMAINING CHEST: Medical devices: None. Thyroid: Normal. Lymph nodes: Mildly enlarged mediastinal lymph nodes measuring up to 1.2 centimeter in the right lower paratracheal station (). Calcified right hilar lymph nodes. Other mediastinal structures: No significant abnormality. Lung parenchyma: Moderate interlobular septal thickening. Mild hazy bilateral ground-glass airspace opacities. Airways: Moderate bronchial wall thickening. Pleura: Small tyulw-gmlguyw-genz-left pleural effusions. Chest wall: No significant abnormality. Upper abdomen: Refluxed contrast is seen in the hepatic veins. Musculoskeletal: Moderate degenerative changes of the visualized spine. Impression: 1. No acute pulmonary embolism. 2. Mildly enlarged main pulmonary artery, which may be seen in the setting of pulmonary hypertension. 3. Biatrial enlargement and reflux contrast into the hepatic veins may represent right heart dysfunction. Consider correlation with echocardiogram. 4. Lpub-fg-ucbzvidt pulmonary edema. Small wupev-lmbublt-tvfv-left pleural effusions. 5. Nonspecific mildly enlarged mediastinal lymph nodes. Discuss this case with Cardiology again. Recommendations are to aim for heartrate control of about 100 as acceptable at this time. Will probably need increase metoprolol dosing as suspected Trial of DuoNeb changes little in his feelings. Maybe coughed up a little bit more crud. Discussed potential outpatient management further with Mr. Farmer with more metoprolol and he is quite anxious about going home. I can not disagree that it would be helpful to get a better idea of what degree of rate control is needed and provide an echocardiogram as part of his inpatient evaluation Have discussed admission with our hospitalist for further rate control, confirmation of stability, monitor and echocardiogram Medical Records Medical records reviewed: Yes I reviewed the patient's medical records Lab Data Lab results reviewed: Yes I reviewed the patient's lab results Labs: Lab Results 05/10/24 05/10/24 05/10/24 Range/Units 09:33 10:42 11:05 D-Dimer Quant (PE/DVT) 0.62 H (0.00-0.50) ug/ml Lab Acknowledgement New Spec Needed POC Troponin I 0.01 (0.01-0.04) ng/ml ECG Data Attestation: I personally reviewed and interpreted this ECG as follows: (AFib with RVR at a rate of 126) Discharge Plan Discharge Clinical Impression: Atrial fibrillation with rapid ventricular response, Cough Patient Disposition: Admitted As Observation Condition: Stable
--- OUTSIDE RECORDS SUMMARY | 2024-05-10 09:21 | XMS_ITS | Clinical Summary ---
Author Organization [employer] [facility] Address [place], [place] [address] Care Team Providers Care Cake Tester Name Role Phone Bernard Ohara DO Primary Care Provider [phone] Allergies Active Allergy Reactions Criticality Noted Date [...] Department Care Team Description 05/10/2024 Nurse Triage [facility] [address] [place] [address] Mariela Schmitz PA Irregular Heart Beat 05/09/2024 12:30 PM C WINFORMS DEVELOPER Office Visit [facility] [address] [place] [address] Mariela Schmitz PA Breathing Problem (Patient was seen in ED ON 04/28/24- 05/07/24 for cough and breathing issues, patient still has trouble BREATHING CANT SLEEP /BODY ACHES x 2 weeks, patient was given medication it helps a little bit /) 05/09/2024 Telephone [facility] [address] [place] [address] [place] [place] [facility] [place] 05/09/2024 Telephone [facility] [address] [facility] [address] [place] [address] Juan Zavala MD 05/09/2024 Orders Only [facility] [address] [place] [address] Mariela Schmitz PA 1 scan: (1-Ord) EKG, [facility], 05/09/24 05/09/2024 Travel from Last 3 [...] on file Legal Sex Male 5:42 AM C WINFORMS DEVELOPER Gender Identity Not on file Sexual Orientation Not on file Obstetrics History Last Filed Vital Signs Vital Sign Reading Time Taken Comments Blood Pressure 128/84 05/09/2024 12:31 PM C WINFORMS DEVELOPER Pulse 57 05/09/2024 12:31 PM C [employer]FOR[employer] DEVELOPER Temperature 37.1 C (98.8 F) 05/09/2024 12:31 PM C WINFORMS DEVELOPER Respiratory Rate 16 10/27/2022 2:33 PM CDT Oxygen Saturation 97% 05/09/2024 12: 31 PM C WINFORMS DEVELOPER Inhaled Oxygen Concentration - - Weight 92.1 kg (203 lb 1.6 oz) 05/09/19 12:31 PM C WINFOR[employer] DEVELOPER Height 182 cm (5' 11.65) 05/09/2024 12 :31 PM C WINFOR[employer] DEVELOPER with shoes Body Mass Index 27.81 05/09/2024 12:31 PM C WINFORMS DEVELOPER Plan of Treatment Upcoming Encounters Date Type Department Care Team (Late st Contact Info) Description 05/16/2024 2:30 PM C WINFORMS DEVELOPER Office Visit [address] [place] [address] Olvin Pierre MD [address] [place] [address] Health Maintenance Due Date Last Done Comments [...] adequate candidate for conscious sedation. The PCF-H190L [id number] was passed through the anus and advanced [...] 1:18 PM Procedure Code(s): --- Professional --- 08048, Colonoscopy, flexible; with removalof tumor(s), polyp(s), or other lesion(s) bysnare technique 21988, 59, Colonoscopy, flexible; withbiopsy, single or multiple Diagnosis Code(s): --- Professional --- Z12.11, Encounter for screening formalignant neoplasm of colon D12.0, Benign neoplasm of cecum D12.2, Benign neoplasm of ascending colon CPT copyright 2021 [employer]. All rights reserved. The codes documented in this report are preliminary and upon side door worker reviewmay be revised to meet current compliance requirements. Scope In: 1:51:32 PM Scope Withdrawal Time 0 hours 10 minutes 22 seconds Scope Out: 2:07:12 PM us Ruslan Aburto MD PROCEDURE ORD Edited Re sult - Final * (ABNORMAL) LIPID PANEL W REFLEX MEASURED LDL (10/16/2022 4:07 PM CDT) CHOLESTEROL,TOTAL 216(H) 100 - 199 mg/dL 10/16/2022 11:08 PM CDT [facility] Comment: Cholesterol, Total Reference Ranges Desirable <200 mg/dL Borderline 200-239 mg/dL High >=240 mg/dL TRIGLYCERIDES 123 <150 mg/dL 10/16/2022 11:08 PM CDT [facility] HDL CHOLESTEROL 40(L) >40 mg/dL 11:08 PM CDT [facility] NON-HDL CHOLESTEROL 176(H) <145 mg/dl 10/16/2022 11:08 PM CDT [facility] CHOL/HDL RATIO 5.40(H) <4.50 10/16/2022 11:08 PM CDT [facility] LDL CHOLESTEROL 151(H) <=130 mg/dL 10/16/2022 11:08 PM CDT [facility] VLDL CHOLESTEROL 25 <=30 mg/dL 10/16/2022 11:08 PM CDT [facility] PROVIDER ORDERED STATUS RANDOM 10/16/2022 11:08 PM CDT [facility] Blood BLOOD SPECIMEN / Unknown Venipuncture / Unknown 10/16/2022 4:07 PM CDT 10/16/2022 4:09 PM CDT us Bernard Ohara DO CHEMISTRY Final Result [facility] [address] [place] [address], [place] from Last 3 Months or Most Recently Relevant to Health Maintenance Care Teams Cake Tester Relationship Specialty Start Date End Date Bernard Ohara DO [address] [place] [address] PCP - General Family Practice 10/16/22
--- OUTSIDE RECORDS SUMMARY | 2024-05-10 09:21 | XMS_ITS | Referral Summary ---
Author Organization [facility] Address [address] [place] [address] Care Team Providers Care Licensed Massage Therapist Name Role Phone Elsewhere, Pcp Primary Care Provider Unavailabl e Source Comments Patient records contain information from all sites at [facility]. For routine questions regarding patient records, call [phone] during business hours, M-F 8:00 AM - 5:00 PM Central Time. Record requests for emergency care only can be directed to [phone] at any time.[facility] Encounters Date Type Department Care Team Description 2024 8:59 AM REAL ESTATE RENTAL AGENT - 2024 10:14 AM [facility] Emergency [place] [facility] [address] [place] [phone] Kaur Hagen, JOYCE, C.N.P. Cough Acute (Primary Dx); Elevated Blood Pressure; Adjustment Disorder With Anxious Mood Discharge Disposition: Home or Self Care 04/28/2024 12:40 PM REAL ESTATE RENTAL AGENT - 04/28/2024 12:57 PM [facility] Emergency [place] [facility] [address] [place] [phone] Lilly Mckenna P.A.-C., P.A. Cough Unspecified Type [...] on file Legal Sex Male 5:17 PM REAL ESTATE RENTAL AGENT Gender Identity Not on file Sexual Orientation Not on file Last Filed Vital Signs Vital Sign Reading Time Taken Comments Blood Pressure 135/87 2024 10:09 AM REAL ESTATE RENTAL AGENT Pulse 73 2024 10:09 AM REAL ESTATE RENTAL AGENT Temperature 36.3 C (97.3 F) 2024 8:33 AM REAL ESTATE RENTAL AGENT Respiratory Rate 20 2024 8:33 AM REAL ESTATE RENTAL AGENT Oxygen Saturation 98% 2024 8:33 AM REAL ESTATE RENTAL AGENT Inhaled Oxygen Concentration - - Weight 90.2 kg (198 lb 12.8 oz) 2024 8:37 AM REAL ESTATE RENTAL AGENT Height 179.1 cm (5' 10.5) 2024 8:36 AM CS T Body Mass Index 28.12 2024 8:36 AM REAL ESTATE RENTAL AGENT Plan of Treatment Not on file Procedures Procedure Name Priority Date/Time Associated Diagnosis Comments DX CHEST AP OR PA AND LATERAL 2 VIEWS RAD - Semiurgent (Fast; most ED patients; some inpatients) 04/28/2024 12:02 PM REAL ESTATE RENTAL AGENT BASIC METABOLIC PANEL, S/P STAT 10/07/2022 6:41 PM CDT Fatigue from Last 3 Months or Most Recently Relevant to Health Maintenance Results * DX Chest AP or PA and Lateral 2 Views (04/28/2024 12:02 PM REAL ESTATE RENTAL AGENT) Anatomical Region Laterality Modality Chest, Thoracic RST LOS, Tho racic ARZ LOS, Thoracic FLA LOS N/A Digital Radiography Impressions 04/28/2024 12:06 PM REAL ESTATE RENTAL AGENT 1. No active cardiopulmonary disease. 2. 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 Narrative 04/28/2024 12:06 PM REAL ESTATE RENTAL AGENT EXAM: DX CHEST AP OR PA AND [...] 6:41 PM CDT 10/07/2022 6:45 PM CDT eBto Medina P.A.-C., P.A. LAB BLOOD ADD -ON Final Result [facility] [address] [place] [address], [place] [facility] [address] [place] [address] from Last 3 Months or Most Recently Relevant to Health Maintenance Insurance [facility] [place] [id number] Care Teams Licensed Massage Therapist Relationship Specialty Start Date End Date Elsewhere, Pcp PCP - General Internal Medicine 02/21/19
--- OUTSIDE RECORDS SUMMARY | 2024-05-10 09:21 | XMS_ITS | Clinical Summary ---
Author Organization [facility] Address [address] [place] [address] Care Team Providers Care Multimedia Educational Specialist Name Role Phone Elsewhere, Pcp Primary Care Provider Unavailabl e Source Comments Patient records contain information from all sites at [facility]. For routine questions regarding patient records, call [phone] during business hours, M-F 8:00 AM - 5:00 PM Central Time. Record requests for emergency care only can be directed to [phone] at any time.[facility] Allergies Active Allergy Reactions Criticality Noted Date [...] Department Care Team Description 2024 8:59 AM CANVAS GOODS MAKER - 2024 10:14 AM [facility] Emergency/Urgent Care Department [address] [place] [phone] Kaur Hagen, JOYCE, C.N.P. Cough Acute (Primary Dx); Elevated Blood Pressure; Adjustment Disorder With Anxious Mood Discharge Disposition: Home or Self Care 04/28/2024 12:40 PM CANVAS GOODS MAKER - 04/28/2024 12:57 PM [facility] Emergency/Urgent Care Department [address] [place] [phone] Lilly Mckenna P.A.-C., P.A. Cough Unspecified Type [...] on file Legal Sex Male 5:17 PM CANVAS GOODS MAKER Gender Identity Not on file Sexual Orientation Not on file Last Filed Vital Signs Vital Sign Reading Time Taken Comments Blood Pressure 135/87 2024 10:09 AM CANVAS GOODS MAKER Pulse 73 2024 10:09 AM CANVAS GOODS MAKER Temperature 36.3 C (97.3 F) 2024 8:33 AM CANVAS GOODS MAKER Respiratory Rate 20 2024 8:33 AM CANVAS GOODS MAKER Oxygen Saturation 98% 2024 8:33 AM CANVAS GOODS MAKER Inhaled Oxygen Concentration - - Weight 90.2 kg (198 lb 12.8 oz) 2024 8:37 AM CANVAS GOODS MAKER Height 179.1 cm (5' 10.5) 2024 8:36 AM CS T Body Mass Index 28.12 2024 8:36 AM CANVAS GOODS MAKER Plan of Treatment Health Maintenance Due Date [...] ED patients; some inpatients) 04/28/2024 12:02 PM CANVAS GOODS MAKER BASIC METABOLIC PANEL, S/P STAT 10/07/2022 6:41 PM CDT Fatigue from Last 3 Months or Most Recently Relevant to Health Maintenance Results * DX Chest AP or PA and Lateral 2 Views (04/28/2024 12:02 PM CANVAS GOODS MAKER) Anatomical Region Laterality Modality Chest, Thoracic RST LOS, Tho racic ARZ LOS, Thoracic FLA LOS N/A Digital Radiography Impressions 04/28/2024 12:06 PM CANVAS GOODS MAKER 1. No active cardiopulmonary disease. 2. 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 Narrative 04/28/2024 12:06 PM CANVAS GOODS MAKER EXAM: DX CHEST AP OR PA AND [...] LAB BLOOD ADD -ON Final Result [facility] [address] [place] [address], [facility] NPRG [facility] [address] [place] [address] from Last 3 Months or Most Recently Relevant to Health Maintenance Insurance [facility] GIUSEPPE MANRIQUEZ [id number] Care Teams Multimedia Educational Specialist Relationship Specialty Start Date End Date Elsewhere, Pcp PCP - General Internal Medicine 02/21/19
--- OUTSIDE RECORDS SUMMARY | 2024-05-10 09:22 | XMS_ITS | Encounter Summary ---
Author Organization [facility] Address [address] [place] [address] Care Team Providers Care Master Coastwise Yacht Name Role Phone Elsewhere, Pcp Primary Care Provider Unavailabl e Reason for Visit * Reason Comments Cough Patient presents wit h a cough for two weeks. States he was given meds for bronchitis (prednisone and tesslon pearls) and it's not working, I need Amoxicillin. Encounter Details Date Type Department Care Team ([facility] st Contact Info) Description 2024 8:59 AM INSURANCE AND BENEFITS CLERK - 2024 10:14 AM INSURANCE AND BENEFITS CLERK Emergency [place] Emergency/Urgent Care Department [address] [place] [phone] Kaur Hagen, THREAD TWISTER, C.N.P. [address] [place] [phone] Cough Acute (Primary Dx); Elevated Blood Pressure; [...] on file Legal Sex Male 5:17 PM INSURANCE AND BENEFITS CLERK Gender Identity Not on file Sexual Orientation Not on file documented as of this encounter Last Filed Vital Signs Vital Sign Reading Time Taken Comments Blood Pressure 135/87 2024 10:09 AM INSURANCE AND BENEFITS CLERK Pulse 73 2024 10:09 AM INSURANCE AND BENEFITS CLERK Temperature 36.3 C (97.3 F) 2024 8:33 AM INSURANCE AND BENEFITS CLERK Respiratory Rate 20 2024 8:33 AM INSURANCE AND BENEFITS CLERK Oxygen Saturation 98% 2024 8:33 AM INSURANCE AND BENEFITS CLERK Inhaled Oxygen Concentration - - Weight 90.2 kg (198 lb 12.8 oz) 2024 8:37 AM INSURANCE AND BENEFITS CLERK Height 179.1 cm (5' 10.5) 2024 8:36 AM CS T Body Mass Index 28.12 2024 8:36 AM INSURANCE AND BENEFITS CLERK documented in this encounter Discharge Instructions * Discharge Instructions* Kaur Hagen APRN, C.N.P. - 2024 9:58 AM INSURANCE AND BENEFITS CLERK Follow up with primary care provider for [...] speaking, swallowing or any other emergent concern. RANCE AND BENEFITS CLERK * Attachments The following attachments cannot be sent through Care Everywhere. * Hypertension Adult Wfeo-vh-[id number] (Slovenian) * Cough Adult (Slovenian) documented in this encounter Medications at Time [...] discussed and reviewed in AVS. Discharged from [facility] in vitally stable improved respiratory and anxious condition. Kaur Hagen APRN, C.N.P. 05/07/24 1013 RANCE AND BENEFITS CLERK documented in this encounter Plan of Treatment [...] 1 doseIndications:Cough Acute Given 2024 9:30 AM INSURANCE AND BENEFITS CLERK 3 mL Mouth documented in this encounter Active and Recently Administered Medications Times are shown in INSURANCE AND BENEFITS CLERK. Scheduled Medication Order 05/05/2024 05/06/2024 2024 ipratropium-albuteroL 0.5-2.5 mg/3 mL nebulizer solution 3 mL (DuoNeb) (COMPLETED) 3 mL, nebulization, Once, On 05/07/24 at 0922, For 1 dose 0930 (Given - Provid er: Sae GreenMBrittanieABrittanie) documented in this encounter Additional Health Concerns Assessment Noted Time PHQ-9 Depression Total Score: 18 018 10:00 AM INSURANCE AND BENEFITS CLERK documented as of this encounter Care Teams Master [employer] Relationship Specialty Start Date End Date Elsewhere, Pcp PCP - General Internal Medicine 02/21/19 documented as of this encounter
--- OUTSIDE RECORDS SUMMARY | 2024-05-10 09:22 | XMS_ITS | Encounter Summary ---
Author Organization [facility] Address [address] [place] [address] Care Team Providers Care Rattle Leak And Squeak Repairer Name Role Phone Elsewhere, Pcp Primary Care [...] st Contact Info) Description 04/28/2024 12:40 PM INVESTIGATION MANAGER - 04/28/2024 12:57 PM INVESTIGATION MANAGER Emergency [place] Emergency/Urgent Care Department [address] [place] [phone] Lilly Mckenna P.A.-Victor Hugo., P.A. [address] [place] [phone] Cough Unspecified Type (Primary Dx) Discharge Disposition: [...] on file Legal Sex Male 5:17 PM INVESTIGATION MANAGER Gender Identity Not on file Sexual Orientation Not on file documented as of this encounter Last Filed Vital Signs Vital Sign Reading Time Taken Comments Blood Pressure 110/88 04/28/2024 11:50 AM INVESTIGATION MANAGER Pulse 78 04/28/2024 11:46 AM INVESTIGATION MANAGER Temperature 36.8 C (98.2 F) 04/28/2024 11:46 AM INVESTIGATION MANAGER Respiratory Rate 18 04/28/2024 11:4 6 AM INVESTIGATION MANAGER Oxygen Saturation 97% 04/28/2024 11: 46 AM INVESTIGATION MANAGER Inhaled Oxygen Concentration - - Weight 94.2 kg (207 lb 11.2 oz) 024 11:45 AM INVESTIGATION MANAGER Height 182.9 cm (6') 04/28/2024 11:45 AM INVESTIGATION MANAGER Body Mass Index 28.17 04/28/2024 11:45 AM INVESTIGATION MANAGER documented in this encounter Medications at Time [...] P.A. Lilly Mckenna P.A.-C., P.A. 04/28/24 1300 STIGATION MANAGER documented in this encounter Plan of Treatment Not on file documented as of this encounter Procedures Procedure Name Priority Date/Time Associated Diagnosis Comments DX CHEST AP OR PA AND LATERAL 2 VIEWS RAD - Semiurgent (Fast; most ED patients; some inpatients) 04/28/2024 12:02 PM INVESTIGATION MANAGER documented in this encounter Results * DX Chest AP or PA and Lateral 2 Views (04/28/2024 12:02 PM INVESTIGATION MANAGER) Anatomical Region Laterality Modality Chest, Thoracic RST LOS, Tho racic ARZ LOS, Thoracic FLA LOS N/A Digital Radiography Impressions 04/28/2024 12:06 PM INVESTIGATION MANAGER 1. No active cardiopulmonary disease. 2. 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 Narrative 04/28/2024 12:06 PM INVESTIGATION MANAGER EXAM: DX CHEST AP OR PA AND [...] Depression Total Score: 18 018 10:00 AM INVESTIGATION MANAGER documented as of this encounter Care Teams Rattle Leak And Squeak Repairer Relationship Specialty Start Date End Date Elsewhere, Pcp PCP - General Internal Medicine 02/21/19 documented as of this encounter
--- OUTSIDE RECORDS SUMMARY | 2024-05-10 09:22 | XMS_ITS ---
Author Organization [facility] Address [address] [place] [address] Care Team Providers Care It Assistant Name Role Phone Unavailable Unavailable Unavailable Surgery Details Not on file Complications Check Surgery Details section. Procedure Estimated Blood Loss Check Surgery Details section. Procedure Findings Check Surgery Details section. Procedure Specimens Taken Check Surgery Details section.
--- OUTSIDE RECORDS SUMMARY | 2024-05-10 09:24 | XMS_ITS | Continuity of Care Document ---
Author Name NwHIN User [email or web address]-a llowed Address Unknown Organization Unknown Address Unknown Encounters FILTER APPLIED:Only known Encounters with Admission Date within the last 5 years Encounter Location Admission Discharge Billing Code Real Time Analyst [facility]
[2024-05-10] MEDS: LORazepam 2 MG/ML inj 0.5 MG IVP (09:30)
[2024-05-10] MEDS: METOPROLOL TARTRATE 25 MG TABLET 50 MG PO (09:30)
[2024-05-10] MEDS: 0.9 % SODIUM CHLORIDE 1000 ml 1,000 ML IV (09:32)
[2024-05-10 09:47] LABS: Troponin, Point-of-Care* 0.01 ng/ml (0.01-0.04)
[2024-05-10 11:08] LABS: Lab Add On Test New Spec Needed
[2024-05-10 11:35] LABS: D Dimer Quantitative* 0.62 ug/ml (0.00-0.50)
--- NOTE | 2024-05-10 12:07 | CRLHL7_ITS ---
For Patients: As a result of the Century Cures Act, medical imaging exams and procedure reports are released immediately into your electronic medical record. You may view this report before your referring provider. If you have questions, please contact your health care provider. Indication: INTERMITTENT CHEST PRESSURE, ATRIAL FIBRILLATION, TACHYCARDIA Technique: CT angiogram of the chest was performed for evaluation of pulmonary embolism. 95 mL of Isovue 370 intravenous contrast was administered. Comparison: 05/09/2024. Findings: CARDIOVASCULAR: Diagnostic quality: Contrast opacification of the pulmonary arterial circulation is adequate for assessment of pulmonary embolism. Study is not significantly limited by respiratory motion artifact. Pulmonary arteries: No filling defects to suggest pulmonary embolism. Mildly enlarged, measuring 3.2 centimeter in diameter (7/102). Heart: No interventricular septal deviation. Biatrial enlargement. Mild coronary artery calcification. No significant valvular calcification. Pericardium: No pericardial effusion. Thoracic aorta: No significant abnormality. Four vessel arch. REMAINING CHEST: Medical devices: None. Thyroid: Normal. Lymph nodes: Mildly enlarged mediastinal lymph nodes measuring up to 1.2 centimeter in the right lower paratracheal station (/85). Calcified right hilar lymph nodes. Other mediastinal structures: No significant abnormality. Lung parenchyma: Moderate interlobular septal thickening. Mild hazy bilateral ground-glass airspace opacities. Airways: Moderate bronchial wall thickening. Pleura: Small wrvmz-klevvif-kwya-left pleural effusions. Chest wall: No significant abnormality. Upper abdomen: Refluxed contrast is seen in the hepatic veins. Musculoskeletal: Moderate degenerative changes of the visualized spine. Impression: 1. No acute pulmonary embolism. 2. Mildly enlarged main pulmonary artery, which may be seen in the setting of pulmonary hypertension. 3. Biatrial enlargement and reflux contrast into the hepatic veins may represent right heart dysfunction. Consider correlation with echocardiogram. 4. Rszu-un-szqskvmv pulmonary edema. Small ztvkj-clgpwjc-yoox-left pleural effusions. 5. Nonspecific mildly enlarged mediastinal lymph nodes. Please note that all CT scans at this facility use dose modulation, iterative reconstruction, and/or weight-based dosing when appropriate to reduce radiation dose to as low as reasonably achievable. Dictated by Jluis Ward MD @ 05/10/2024 1:28:39 PM (Electronically Signed)
[2024-05-10] MEDS: predniSONE 20 MG TABLET 40 MG PO (14:33)
[2024-05-10] MEDS: IPRAT-ALBUT 0.5-2.5 MG/3 ML NEB 1 NEB IH (14:33)
--- NOTE | 2024-05-10 16:17 | P.IMHP_ITS ---
Hospitalist- H&P: HPI History of Present Illness Date Seen: 05/10/24 Chief complaint: Difficulty Breathing Narrative: Chidi Farmer is a 64 year old male w/ suspected Hx of COPD, who presents w SOB. Patient mentions that recently he has been short of breath both at rest and on exertion. Pt was seen at the ED yesterday May after he went to clinic because he was sob. EKG afib with RVR which is a new diagnosis for him. ?Patient denies chest pain, orthopnea and PNDs but has been coughing since he had a recent URT infxn and was treated by oral antibiotics and prednisone 40 mg. ?Patient was smoker and he quit 2 months ago. ?During his ED visit yesterday he was started on apixaban. Pt has history of alcohol use/abuse but clarified later that it has been a little over couple of weeks since had a drink. CTA chest at ED today showed: Mildly enlarged main pulmonary artery, which may be seen in the setting of pulmonary hypertension. Biatrial enlargement and reflux contrast into the hepatic veins may represent right heart dysfunction Jqjt-sp-ykzxluef pulmonary edema. Small ekbpa-rncsnqu-ppon-left pleural effusions. No PE. Review of Systems Status of ROS: Reports: 6 or more systems reviewed and unremarkable except as noted in History and below PFSH PFS Social History What is your current living situation?: I presently have a place to live Problems where you live: no known problems Problems where you live details: none In the past 12 months, utilities in danger of being shut off: no In past 12 months, lack of transportation kept you from medical appts, meetings, work, or getting things needed for daily living: no In the past 12 mos, have been you worried that your food would run out before you had money to buy more?: never true In the past 12 mos, the food you bought just didn't last and you didn't have money to buy more?: never true Highest level of school completed/degree received: Associate degree: occupational, technical, vocational program Smoking Status: Former smoker Do you use any of these nicotine containing products: None How often do you have a drink containing alcohol: 2-4 times a month How many standard drinks containing alcohol do you have on a typical day: 1 or 2 How often do you have six or more drinks on one occasion: Never AUDIT-C Alcohol total score: 2 Non-prescribed substance use: denies use How often does anyone, including family, friends and others, physically hurt you : never How often does anyone, including family, friends and others, insult or talk down to you: never How often does anyone, including family, friends and others, threaten you with harm: never How often does anyone, including family, friends and others, scream or curse at you: never Meds Home Medications and Allergies Home Medications ?Medication ?Instructions ?Recorded ?Confirmed ?Type albuterol sulfate 90 mcg/actuation 2 puff inhalation Q4H PRN 05/10/24 05/10/24 History aerosol inhaler doxycycline monohydrate 100 mg 100 mg PO BID 05/10/24 05/10/24 History capsule hydroxyzine HCl 10 mg tablet 10 mg PO Q6H PRN 05/10/24 05/10/24 History prednisone 20 mg tablet 40 mg PO DAILY 05/10/24 05/10/24 History Allergies Allergy/AdvReac Type Severity Reaction Status Date / Time No Known Drug Allergies Allergy Verified 05/10/24 13:07 Exam Narrative: Exam Narrative: Physical exam GENERAL: Comfortable, no acute distress. HEAD AND NECK: Atraumatic, normocephalic CARDIOVASCULAR: Tachycardic, irregular. No murmurs. RESPIRATORY: Good air entry B/L. +ve wheezes. GASTROINTESTINAL: Not distended, not tender to palpation. NEUROLOGY: Alert, awake, oriented X 3. Normal speech. PSYCH: Normal mood, normal affect. Const: Vital Signs, click to edit/add: Vital Signs - 24 hr 05/10/24 08:53 05/10/24 09:00 05/10/24 09:32 Temperature 97.4 F L Pulse Rate 92 103 H Pulse Rate [Pulse Oximeter] 121 H Pulse Rate [orthos tatic lying Pulse Oximeter] Pulse Rate [orthos tatic sitting Puls e Oximeter] Pulse Rate [orthos tatic standing Pul se Oximeter] Respiratory Rate 20 22 22 Blood Pressure 120/105 H 92/72 Blood Pressure [Ri ght Upper Arm] 119/104 H Blood Pressure [or thostatic lying Le ft Arm] Blood Pressure [or thostatic sitting Left Arm] Blood Pressure [or thostatic standing Left Arm] Pulse Oximetry 95 96 96 Oxygen Delivery Me thod Room Air Room Air 05/10/24 10:02 05/10/24 10:32 05/10/24 11:08 Temperature Pulse Rate 114 H 102 H 88 Pulse Rate [Pulse Oximeter] Pulse Rate [orthos tatic lying Pulse Oximeter] Pulse Rate [orthos tatic sitting Puls e Oximeter] Pulse Rate [orthos tatic standing Pul se Oximeter] Respiratory Rate 26 H 20 24 Blood Pressure 98/87 114/81 107/95 H Blood Pressure [Ri ght Upper Arm] Blood Pressure [or thostatic lying Le ft Arm] Blood Pressure [or thostatic sitting Left Arm] Blood Pressure [or thostatic standing Left Arm] Pulse Oximetry 95 95 93 Oxygen Delivery Me thod Room Air 05/10/24 11:17 05/10/24 11:20 05/10/24 11:36 Temperature Pulse Rate 90 115 H Pulse Rate [Pulse Oximeter] Pulse Rate [orthos tatic lying Pulse Oximeter] 129 H Pulse Rate [orthos tatic sitting Puls e Oximeter] 126 H Pulse Rate [orthos tatic standing Pul se Oximeter] 110 H Respiratory Rate 18 20 Blood Pressure 109/95 H 101/89 Blood Pressure [Ri ght Upper Arm] Blood Pressure [or thostatic lying Le ft Arm] 109/95 H Blood Pressure [or thostatic sitting Left Arm] 103/75 Blood Pressure [or thostatic standing Left Arm] 112/88 Pulse Oximetry 96 95 Oxygen Delivery Me thod 05/10/24 12:04 05/10/24 13:02 05/10/24 13:32 Temperature Pulse Rate 55 L 112 H 96 Pulse Rate [Pulse Oximeter] Pulse Rate [orthos tatic lying Pulse Oximeter] Pulse Rate [orthos tatic sitting Puls e Oximeter] Pulse Rate [orthos tatic standing Pul se Oximeter] Respiratory Rate 18 20 22 Blood Pressure 112/90 H 97/87 94/78 Blood Pressure [Ri ght Upper Arm] Blood Pressure [or thostatic lying Le ft Arm] Blood Pressure [or thostatic sitting Left Arm] Blood Pressure [or thostatic standing Left Arm] Pulse Oximetry 94 98 93 Oxygen Delivery Me thod 05/10/24 14:07 05/10/24 14:32 05/10/24 15:03 Temperature Pulse Rate 86 89 82 Pulse Rate [Pulse Oximeter] Pulse Rate [orthos tatic lying Pulse Oximeter] Pulse Rate [orthos tatic sitting Puls e Oximeter] Pulse Rate [orthos tatic standing Pul se Oximeter] Respiratory Rate 22 22 24 Blood Pressure 113/99 H 123/97 H 123/111 H Blood Pressure [Ri ght Upper Arm] Blood Pressure [or thostatic lying Le ft Arm] Blood Pressure [or thostatic sitting Left Arm] Blood Pressure [or thostatic standing Left Arm] Pulse Oximetry 91 95 97 [facility] 15:34 Temperature Pulse Rate 94 Pulse Rate [Pulse Oximeter] Pulse Rate [orthos tatic lying Pulse Oximeter] Pulse Rate [orthos tatic sitting Puls e Oximeter] Pulse Rate [orthos tatic standing Pul se Oximeter] Respiratory Rate 22 Blood Pressure 117/101 H Blood Pressure [Ri ght Upper Arm] Blood Pressure [or thostatic lying Le ft Arm] Blood Pressure [or thostatic sitting Left Arm] Blood Pressure [or thostatic standing Left Arm] Pulse Oximetry 91 Oxygen Delivery [facility] Hospitalist - H&P: Result Imaging CT scan - chest: Radiologist's impression: Technique: CT angiogram of the chest was performed for evaluation of pulmonary embolism. 95 mL of Isovue 370 intravenous contrast was administered. Comparison: 05/09/2024. Findings: CARDIOVASCULAR: Diagnostic quality: Contrast opacification of the pulmonary arterial circulation is adequate for assessment of pulmonary embolism. Study is not significantly limited by respiratory motion artifact. Pulmonary arteries: No filling defects to suggest pulmonary embolism. Mildly enlarged, measuring 3.2 centimeter in diameter (102). Heart: No interventricular septal deviation. Biatrial enlargement. Mild coronary artery calcification. No significant valvular calcification. Pericardium: No pericardial effusion. Thoracic aorta: No significant abnormality. Four vessel arch. REMAINING CHEST: Medical devices: None. Thyroid: Normal. Lymph nodes: Mildly enlarged mediastinal lymph nodes measuring up to 1.2 centimeter in the right lower paratracheal station (). Calcified right hilar lymph nodes. Other mediastinal structures: No significant abnormality. Lung parenchyma: Moderate interlobular septal thickening. Mild hazy bilateral ground-glass airspace opacities. Airways: Moderate bronchial wall thickening. Pleura: Small brotw-zfrvoql-hgfz-left pleural effusions. Chest wall: No significant abnormality. Upper abdomen: Refluxed contrast is seen in the hepatic veins. Musculoskeletal: Moderate degenerative changes of the visualized spine. Impression: 1. No acute pulmonary embolism. 2. Mildly enlarged main pulmonary artery, which may be seen in the setting of pulmonary hypertension. 3. Biatrial enlargement and reflux contrast into the hepatic veins may represent right heart dysfunction. Consider correlation with echocardiogram. 4. Oekm-yt-ofvalnhv pulmonary edema. Small rsktj-ytwmasg-rkvd-left pleural effusions. 5. Nonspecific mildly enlarged mediastinal lymph nodes. Please note that all CT scans at this facility use dose modulation, iterative reconstruction, and/or weight-based dosing when appropriate to reduce radiation dose to as low as reasonably achievable. Dictated by Jluis Ward MD @ 05/10/2024 1:28:39 PM Assessment and Plan Assessment and plan (1) Atrial fibrillation with rapid ventricular response: Problem comment: Will continue apixaban Metoprolol tartrate scheduled Q 4 hours with parameters Ordered 1 dose diltiazem of 15 mg IV push, heart rate was controlled after that. Ordered echo ED contacted Cardiology through [facility] (Dr. Zavala) showed that the patient would follow up with him as an outpatient for further workup. Status: Acute (2) Cough: Problem comment: Likely secondary to recent upper respiratory tract infection versus suspected COPD versus heart failure Increased phlegm Patient states that he was given doxycycline and prednisone 40 recently due to an upper respiratory sinus infection but he is not sure how much is left of this medication. Ordered an echo CTA chest: Lung parenchyma: Moderate interlobular septal thickening. Mild hazy bilateral ground-glass airspace opacities. Airways: Moderate bronchial wall thickening. Pleura: Small flrhv-ulxbvwk-gfiv-left pleural effusions. Will order budesonide nebulizer to help with his cough, which is likely post viral. Status: Acute (3) COPD (chronic obstructive pulmonary disease): Problem comment: Needs further workup as an outpatient Patient is not on inhalers and states he was not diagnosed though he said he has morning smoking cough Status: Suspected Total Time Spent Total Time Spent: Time spent: Today I spent 75 minutes seeing the patient, discussing the patient with ER staff, reviewing Expanse and EPIC notes/diagnostics, discussing the care plan with our care time that includes social work, PT/OT, pharmacy, RT, prison and documenting my impressions and plan in the medical record.
[2024-05-10] MEDS: METOPROLOL TARTRATE 25 MG TABLET PO ×2 (16:23→19:50)
[2024-05-10] MEDS: dilTIAZem 5 MG/ML inj 15 MG IVP (17:42)
--- NOTE | 2024-05-10 19:12 | PC.NURSE ---
End of Shift: Patient pleasant and cooperative, A&O. Patient has been in a-fib RVR this shift, scheduled metoprolol given, patient continued to have HR in the 120s-130s, MD notified, IV Diltiazem given per MD, see MAR. All other vitals stable. Tele: a-fib w/ RVR. On continuous pulse ox. Patient reports feeling SOB at rest this shift. SpO2 maintained above 90% on RA. Tolerating heart healthy diet. SBA. ?
[2024-05-10] MEDS: SODIUM CHLORIDE 0.9 % (FLUSH) 10 ML SYRINGE 5 ML IVF (20:48)
[2024-05-10] MEDS: APIXABAN 5 MG TABLET PO (20:48)
[2024-05-11] VITALS (15 sets, daily range): BP systolic 89–114; BP diastolic 74–93; PULSE 94–125; RESP 18–28; TEMP 36.3–37.1; O2SAT 93–98
[2024-05-11] MEDS: METOPROLOL TARTRATE 25 MG TABLET PO ×4 (00:16→12:00)
[2024-05-11] MEDS: hydrOXYzine pamoate 25 MG CAPSULE PO (03:45)
--- NOTE | 2024-05-11 06:41 | PC.NURSE ---
Shift note: Patient appears to be anxious about his condition. He mentioned to me about why he is not being managed by palliative senior np. When an attempt was made to educate him about the condition, he mentioned that his elder sister who was a nurse said to him that he needs to be seen by a palliative senior np. This has caused some form of anxiety. Education about his condition was given to him and her sister who called to get more information about him. HR has been between 80s to around 118. Mostly increases with activity and with anxiety. Scheduled metoprolol given per parameters. Pt' sleep was intermittent. Hydroxyzine was given to help with the anxiety. He keeps repeating same questions and ask questions about every medication to be given.
[2024-05-11 07:04] LABS: Hematocrit 45.4 % (37.0-53.0); Hemoglobin* 14.7 gm/dL (13.5-17.5); Mean Corpuscular HGB Conc 32 gm/dL (32-36); Mean Corpuscular Hemoglobin 31 pg (26-34); Mean Corpuscular Volume 95 fL (80-100); Platelet Count* 167 K/uL (140-440); Red Blood Count 4.76 m/uL (4.30-5.90); White Blood Count* 12.21 K/uL (4.50-11.00)
[2024-05-11 07:14] LABS: Chloride* 107 mmol/L (96-114); Potassium* 4.6 mmol/L (3.6-5.1); Sodium* 139 mmol/L (135-149)
[2024-05-11 07:17] LABS: Anion Gap 8 mEq/L (7-15); Blood Urea Nitrogen* 21 mg/dL (7-30); Calcium* 8.6 mg/dL (8.4-10.6); Carbon Dioxide* 24 mmol/L (20-32); Creatinine* 1.1 mg/dL (0.5-1.5); Est. Creatinine Clearance* 74.46; Estimated Glomerular Filt Rate 75 ml/min; Glucose* 101 mg/dL (60-115); Slide Review Reflex No
[2024-05-11 07:35] LABS: Cholesterol* 147 mg/dL (90-199); HDL Cholesterol* 38 mg/dL (>=40); LDL Cholesterol Calculated 93 mg/dL (<100); Triglycerides* 79 mg/dL (40-149)
[2024-05-11 07:53] LABS: Thyroid Stimulating Hormone* 0.528 uIU/mL (0.270-4.20)
[2024-05-11] MEDS: FUROSEMIDE 10 MG/ML inj 40 MG IVP (08:05)
[2024-05-11 08:07] LABS: Magnesium* 2.3 mg/dL (1.5-2.6)
[2024-05-11] MEDS: APIXABAN 5 MG TABLET PO ×2 (09:11→20:46)
[2024-05-11] MEDS: THIAMINE 100 MG TABLET PO (09:11)
[2024-05-11] MEDS: MULTIVITAMIN/MINERALS 1 TABLET 1 TAB PO (09:11)
[2024-05-11] MEDS: BUDESONIDE 0.5 MG/2ML NEB NEB ×2 (09:11→20:46)
--- NOTE | 2024-05-11 14:07 | NUTR.NU ---
Nutrition: Patient admit with atrial fib, upper respiratory infection/cough, copd. Height 72, Weight 199.6 lbs, BMI 27.3. No weight history. Diet order Heart Healthy. Visited with patient he reports appetite is good and meals are going well here also. Denies chewing or swallowing problems as well as nausea, vomiting, constipation. Intake 100% at supper last night and 75% at breakfast today. He reports no special diet at home. He declines diet education today related to feeling weak. Monitor intake and diet tolerance and follow up related to education tomorrow.
[2024-05-11] MEDS: SODIUM CHLORIDE 0.9 % (FLUSH) 10 ML SYRINGE 5 ML IVF ×2 (14:40→20:46)
[2024-05-11] MEDS: DIGOXIN 250 MCG/ML inj 500 MCG IV (14:40)
[2024-05-11] MEDS: SPIRONOLACTONE 25 MG TABLET PO (14:53)
--- NOTE | 2024-05-11 17:27 | PM.IMPN1 ---
Progress Note: A&P Assessment and plan (1) Atrial fibrillation with rapid ventricular response: Problem details: Likely present for at least a couple weeks. Initiate anticoagulation, diuresis and rate control primarily. Heart failure medicines as tolerated. 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 Initiate more optimal rate control with digoxin plus metoprolol. Initiate diuretics and other guideline directed therapy as blood pressure allows. Status: Acute (3) Alcohol use disorder: Problem details: Patient reports a history of alcoholism. Stop drinking for 17 years. At the time of his divorce about 7 years ago he started drinking again. Has been drinking recently but stopped a couple weeks ago. Status: Acute (4) Tobacco use disorder: Problem details: Recently stop smoking Status: Acute Plan Continue in hospital for ongoing management of tachycardia and heart failure. Discharge to home when adequate rate control and adequate volume control and titration of heart failure medicines. Anticipate 2 or 3 days in the hospital for this. Total time spent today is 55 minutes in review of history, evaluation management and discussion with patient and other providers of heart failure treatment Subjective Date Seen: 05/11/24 Interval history: Chidi Farmer is a 64 year old male w/ suspected Hx of COPD, who presents w SOB. Patient mentions that recently he has been short of breath both at rest and on exertion. Pt was seen at the ED yesterday May after he went to clinic because he was sob. EKG afib with RVR which is a new diagnosis for him. ?Patient denies chest pain, orthopnea and PNDs but has been coughing since he had a recent URT infxn and was treated by oral antibiotics and prednisone 40 mg. ?Patient was smoker and he quit 2 months ago. ?During his ED visit yesterday he was started on apixaban. Pt has history of alcohol use/abuse but clarified later that it has been a little over couple of weeks since had a drink. CTA chest at ED today showed: Mildly enlarged main pulmonary artery, which may be seen in the setting of pulmonary hypertension. Biatrial enlargement and reflux contrast into the hepatic veins may represent right heart dysfunction Xjke-pv-zbfwsygo pulmonary edema. Small bdixq-ylfzvxu-iony-left pleural effusions. No PE. 05/11/2024: Patient reports that symptoms have been present for at least a couple weeks. He has been gradually been feeling worse. Echocardiogram today shows reduced ejection fraction of 30-35%. He has improved but still inadequate rate control with heart rates between 100-120 consistently. Blood pressures have been relatively soft. He is given furosemide for his heart failure. Metoprolol 25 mg q.4 hours for rate control. No evidence of alcohol withdrawal. Exam Narrative: Exam Narrative: He is alert pleasant and appears in no distress. Respirations are clear to auscultation except for a rare basilar crackle. No wheezing. Cardiovascular: S1, S2, irregularly irregular. No murmur gallop or rub. Abdomen: Bowel sounds active. Abdomen is soft without tenderness or mass. Const: Vital Signs, click to edit/add: Vital Signs - 24 hr 05/10/24 18:02 05/10/24 19:00 05/10/24 22:31 Temperature 97.1 F L Pulse Rate 96 Pulse Rate [Pulse Oximeter] 112 H Respiratory Rate 22 20 Blood Pressure [Le ft Arm] 94/77 Blood Pressure [Ri ght Arm] Pulse Oximetry 97 90 Oxygen Delivery Pa thod Room Air Room Air 05/10/24 23:00 05/10/24 23:00 05/11/24 03:00 Temperature 98.1 F 97.9 F Pulse Rate Pulse Rate [Pulse Oximeter] 89 112 H 111 H Respiratory Rate 20 20 20 Blood Pressure [Le ft Arm] 107/81 108/91 H Blood Pressure [Ri ght Arm] Pulse Oximetry 94 96 Oxygen Delivery Pa thod Room Air Room Air 05/11/24 08:00 05/11/24 08:10 05/11/24 09:11 Temperature 98.3 F 98.3 F 98.4 F Pulse Rate Pulse Rate [Pulse Oximeter] 113 H 113 H 107 H Respiratory Rate 18 18 20 Blood Pressure [Le ft Arm] 104/92 H 104/92 H 105/93 H Blood Pressure [Ri ght Arm] Pulse Oximetry 93 93 97 Oxygen Delivery Pa thod Room Air Room Air Room Air 05/11/24 11:53 05/11/24 12:00 05/11/24 13:15 Temperature 97.4 F L Pulse Rate 118 H Pulse Rate [Pulse Oximeter] 97 125 H Respiratory Rate 28 H Blood Pressure [Le ft Arm] Blood Pressure [Ri ght Arm] 93/83 Pulse Oximetry 94 Oxygen Delivery Pa thod Room Air 05/11/24 14:40 Temperature Pulse Rate 109 H Pulse Rate [Pulse Oximeter] Respiratory Rate Blood Pressure [Le ft Arm] Blood Pressure [Ri ght Arm] Pulse Oximetry Oxygen Delivery Me thod Documenting provider has reviewed patient's vital signs: yes Labs Labs: Laboratory Results - last 24 hr 05/11/24 05/11/24 06:29 07:48 WBC 12.21 H RBC 4.76 Hgb 14.7 Hct 45.4 MCV 95 MCH 31 MCHC 32 Plt Count 167 Sodium 139 Potassium 4.6 Chloride 107 Carbon Dioxide 24 Anion Gap 8 BUN 21 Creatinine 1.1 Estimated Creat Clear 74.46 Estimated GFR 75 Glucose 101 Calcium 8.6 Magnesium 2.3 Triglycerides 79 Cholesterol 147 LDL Cholesterol, Calc 93 HDL Cholesterol 38 L TSH 0.528 Lab Acknowledgement Test Added
--- NOTE | 2024-05-11 19:49 | PC.NURSE ---
End of Shift: Patient pleasant and cooperative, A&O. Patient was in a-fib with RVR this shift, notified., IV med given, see MAR. All other VSS. SBA. Patient denies pain this shift. Tolerating regular diet. ?
[2024-05-11] MEDS: DIGOXIN 250 MCG TABLET PO (20:41)
[2024-05-11] MEDS: MELATONIN 3 MG TABLET PO (20:46)
[2024-05-11] MEDS: METOPROLOL TARTRATE 50 MG TABLET PO (20:46)
[2024-05-11] MEDS: LORazepam 0.5 MG TABLET PO (20:51)
[2024-05-12] VITALS (10 sets, daily range): BP systolic 98–120; BP diastolic 59–88; PULSE 73–95; RESP 16–20; TEMP 36.1–36.8; O2SAT 92–98
[2024-05-12] MEDS: ACETAMINOPHEN 325 MG TABLET 650 MG PO (01:52)
[2024-05-12] MEDS: BENZOCAINE/MENTHOL 1 EACH LOZENGE MUCOUS MEM ×3 (01:53→21:23)
--- NOTE | 2024-05-12 07:25 | PC.NURSE ---
Upon initial assessment the patient was noted to be irritable, CIWAS q4. PRN tylenol given for headache overnight. VS on RA, SBA. Rate is controlled at rest. Call light within reach.
[2024-05-12] MEDS: METOPROLOL TARTRATE 50 MG TABLET PO ×2 (08:38→21:17)
[2024-05-12] MEDS: MULTIVITAMIN/MINERALS 1 TABLET 1 TAB PO (08:38)
[2024-05-12] MEDS: APIXABAN 5 MG TABLET PO ×2 (08:38→21:17)
[2024-05-12] MEDS: THIAMINE 100 MG TABLET PO (08:38)
[2024-05-12] MEDS: SPIRONOLACTONE 25 MG TABLET PO (08:38)
[2024-05-12] MEDS: SODIUM CHLORIDE 0.9 % (FLUSH) 10 ML SYRINGE 5 ML IVF ×2 (08:39→21:18)
[2024-05-12] MEDS: DIGOXIN 125 MCG TABLET PO (09:37)
[2024-05-12] MEDS: BUDESONIDE 0.5 MG/2ML NEB NEB (09:37)
--- NOTE | 2024-05-12 14:43 | PC.NURSE ---
Shift Summary: Patient pleasant and cooperative. Up independently. Vitals stable and WNL, HR <100 throughout most of day, continues to show a-fib. Patient up walking in halls, HR up to 117 however is does not stay that high for long, once back in room recovers quickly and HR <100. Verbalized he feels better this afternoon, while walking in halls denied SOB, stated I feel like a new man. Tolerating regular diet, denies pain or nausea.
--- NOTE | 2024-05-12 16:21 | P.IMPN_ITS ---
Progress Note: A&P Assessment and plan (1) Atrial fibrillation with rapid ventricular response: Problem details: Likely present for at least a couple weeks. Initiate anticoagulation with apixaban 5 mg twice daily, diuresis and rate control primarily. Heart failure medicines as tolerated. 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 Initiate more optimal rate control with digoxin plus metoprolol. Initiate diuretics and other guideline directed therapy as blood pressure allows. Status: Acute (3) Alcohol use disorder: Problem details: Patient reports a history of alcoholism. Stop drinking for 17 years. At the time of his divorce about 7 years ago he started drinking again. Has been drinking recently but stopped a couple weeks ago. Status: Acute (4) Tobacco use disorder: Problem details: Recently stop smoking Status: Acute Plan 1. Reviewed impression recommendations with patient 2. Answers question With threes agreeable Time Spent With Patient Total time spent: 40 minutes Subjective Date Seen: 05/12/24 Interval history: Chidi Farmer is a 64 year old male w/ suspected Hx of COPD, who presents w SOB. Patient mentions that recently he has been short of breath both at rest and on exertion. Pt was seen at the ED yesterday May after he went to clinic because he was sob. EKG afib with RVR which is a new diagnosis for him. ?Patient denies chest pain, orthopnea and PNDs but has been coughing since he had a recent URT infxn and was treated by oral antibiotics and prednisone 40 mg. ?Patient was smoker and he quit 2 months ago. ?During his ED visit yesterday he was started on apixaban. Pt has history of alcohol use/abuse but clarified later that it has been a little over couple of weeks since had a drink. CTA chest at ED today showed: Mildly enlarged main pulmonary artery, which may be seen in the setting of pulmonary hypertension. Biatrial enlargement and reflux contrast into the hepatic veins may represent right heart dysfunction Nxhp-ck-kdeqxqno pulmonary edema. Small fsqng-ihrhjca-tdfp-left pleural effusions. No PE. 05/11/2024: Patient reports that symptoms have been present for at least a couple weeks. He has been gradually been feeling worse. Echocardiogram today shows reduced ejection fraction of 30-35%. He has improved but still inadequate rate control with heart rates between 100-120 consistently. Blood pressures have been relatively soft. He is given furosemide for his heart failure. Metoprolol 25 mg q.4 hours for rate control. No evidence of alcohol withdrawal. Hospital day 3, 05/12/2024. Feeling a little better. Rate better controlled. Tolerating increased activities, but exertional heart rates still around 120. Exam Narrative: Exam Narrative: Examine him in his hospital room. Appears comfortable and in no acute distress. Vision and hearing are adequate. Alert and oriented x4. Lungs are clear to auscultation Chaotic heart rhythm. Systolic heart murmur. Abdomen benign. Extremities without edema. No focal motor neurologic deficits. Const: Vital Signs, click to edit/add: Vital Signs - 24 hr 05/11/24 17:00 05/11/24 17:00 05/11/24 17:00 Temperature 98.8 F 98.8 F Pulse Rate Pulse Rate [Pulse Oximeter] 98 98 98 Respiratory Rate 18 18 18 Blood Pressure [Le ft Arm] Blood Pressure [Ri ght Arm] 114/90 H 114/90 H Pulse Oximetry 96 96 Oxygen Delivery Pr thod Room Air Room Air 05/11/24 17:39 05/11/24 17:43 05/11/24 19:00 Temperature 98.4 F Pulse Rate 104 H Pulse Rate [Pulse Oximeter] 98 Respiratory Rate 18 Blood Pressure [Le ft Arm] Blood Pressure [Ri ght Arm] 110/82 Pulse Oximetry 96 98 Oxygen Delivery Pr thod Room Air 05/11/24 19:00 05/11/24 20:41 05/11/24 23:00 Temperature 98.4 F 98.3 F Pulse Rate 98 Pulse Rate [Pulse Oximeter] 98 94 Respiratory Rate 18 18 Blood Pressure [Le ft Arm] 105/93 H 89/74 L Blood Pressure [Ri ght Arm] 110/82 Pulse Oximetry 98 97 Oxygen Delivery Pr thod Room Air 05/12/24 03:00 05/12/24 07:10 05/12/24 07:59 Temperature 98.2 F 98 F Pulse Rate 95 Pulse Rate [Pulse Oximeter] 80 79 Respiratory Rate 20 16 Blood Pressure [Le ft Arm] Blood Pressure [Ri ght Arm] 102/59 L 120/88 Pulse Oximetry 98 92 [facility] 05/12/24 08:01 05/12/24 08:01 05/12/24 09:37 Temperature 98 F Pulse Rate 94 Pulse Rate [Pulse Oximeter] 79 79 Respiratory Rate 16 Blood Pressure [Le ft Arm] Blood Pressure [Ri ght Arm] 120/88 Pulse Oximetry 92 Oxygen Delivery Pr thod Room Air 05/12/24 11:30 Temperature 97.9 F Pulse Rate Pulse Rate [Pulse Oximeter] 77 Respiratory Rate 18 Blood Pressure [Le ft Arm] Blood Pressure [Ri ght Arm] 106/69 Pulse Oximetry 96 Oxygen Delivery Pr thod Room Air
[2024-05-12] MEDS: MELATONIN 3 MG TABLET PO (21:17)
[2024-05-13 03:00] VITALS: BP 97/71; PULSE 79; RESP 20; TEMP 36.8; O2SAT 95
--- NOTE | 2024-05-13 03:39 | PC.NURSE ---
VSS on RA, no reports of SOB/ chest pain on this shift. Up independently, appetite and PO intake is reassuring. All questions were answered. Mary ELLINGTON BSN
[2024-05-13 06:08] VITALS: PULSE 89
[2024-05-13 06:38] LABS: HCO3 VBG 29 mmol/L (21-28); PCO2 VBG 44 mmHG (40-50); PO2 VBG 36.9 mmHG (25-47)
[2024-05-13 06:45] LABS: Hematocrit 47.2 % (37.0-53.0); Hemoglobin* 15.3 gm/dL (13.5-17.5); Mean Corpuscular HGB Conc 32 gm/dL (32-36); Mean Corpuscular Hemoglobin 30 pg (26-34); Mean Corpuscular Volume 94 fL (80-100); Platelet Count* 176 K/uL (140-440); Red Blood Count 5.05 m/uL (4.30-5.90); White Blood Count* 8.05 K/uL (4.50-11.00)
[2024-05-13 06:55] LABS: Slide Review Reflex No
[2024-05-13 07:00] VITALS: BP 99/82; PULSE 79; PULSE 83; RESP 20; TEMP 36.8; O2SAT 93
[2024-05-13 07:02] LABS: Magnesium* 2.3 mg/dL (1.5-2.6)
[2024-05-13 07:14] LABS: C Reactive Protein* < 0.5 mg/dL (0.5-1.0)
[2024-05-13 08:07] LABS: Procalcitonin* 0.07 ng/mL (<0.50)
[2024-05-13 08:22] LABS: Thyroid Stimulating Hormone* 0.106 uIU/mL (0.270-4.20)
[2024-05-13 09:00] VITALS: BP 99/82; PULSE 83; RESP 20; TEMP 36.8; O2SAT 93
[2024-05-13 09:40] LABS: Digoxin* 0.4 ng/mL (0.8-2.0)
[2024-05-13] MEDS: METOPROLOL TARTRATE 50 MG TABLET PO (09:47)
[2024-05-13] MEDS: APIXABAN 5 MG TABLET PO (09:47)
[2024-05-13 09:48] VITALS: PULSE 84
[2024-05-13] MEDS: SPIRONOLACTONE 25 MG TABLET PO (09:48)
[2024-05-13] MEDS: THIAMINE 100 MG TABLET PO (09:48)
[2024-05-13] MEDS: MULTIVITAMIN/MINERALS 1 TABLET 1 TAB PO (09:48)
[2024-05-13] MEDS: DIGOXIN 125 MCG TABLET PO (09:48)
[2024-05-13] MEDS: SODIUM CHLORIDE 0.9 % (FLUSH) 10 ML SYRINGE 5 ML IVF (09:49)
[2024-05-13] MEDS: BUDESONIDE 0.5 MG/2ML NEB NEB (09:49)
[2024-05-13 10:41] LABS: Troponin I* 0.02 ng/mL (0.01-0.04)
[2024-05-13 10:45] LABS: NT Pro B Type NatriureticPept* 5290 pg/mL
[2024-05-13 11:00] VITALS: BP 97/87; PULSE 83; RESP 18; O2SAT 93
--- NOTE | 2024-05-13 15:49 | PC.NURSE ---
Nursing Care Hours: [id number] Pt this shift calm and cooperative with cares. Alert and oriented. BP slightly soft without symptoms. Ambulating in room without issue. Insole Department Worker instructed pt on side effects of new medications regarding blood pressure and encouraged pt to move slowing when standing and changing positions. Tele showing Afib with NVR. No edema noted. IV removed for discharge. Instructions went over with pt. Emphasizing SS risks factors, SS of stroke, SC, and PE. Pt did not have any questions or concerns at this time. Ambulated off the unit independently. Received ride from neighbor.
--- NOTE | 2024-05-13 17:35 | P.DS_ITS ---
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 Initiate more optimal rate control with digoxin plus metoprolol. Initiate diuretics and other guideline directed therapy as blood pressure allows. (2) Atrial fibrillation with rapid ventricular response: Status: Acute Problem details: Likely present for at least a couple weeks. Initiate anticoagulation with apixaban 5 mg twice daily, diuresis and rate control primarily. Heart failure medicines as tolerated. Avoid alcohol (3) Moderate tricuspid valve regurgitation: Status: Acute (4) Severe mitral regurgitation: Status: Acute (5) Tobacco use disorder: Status: Acute Problem details: Recently stop smoking (6) Alcohol use disorder: Status: Acute Problem details: Patient reports a history of alcoholism. Stop drinking for 17 years. At the time of his divorce about 7 years ago he started drinking again. Has been drinking recently but stopped a couple weeks ago. (7) COPD (chronic obstructive pulmonary disease): Status: Suspected Problem details: Needs further workup as an outpatient Patient is not on inhalers and states he was not diagnosed though he said he has morning smoking cough (8) Cough: Status: Acute Problem details: Likely secondary to recent upper respiratory tract infection versus suspected COPD versus heart failure Increased phlegm Patient states that he was given doxycycline and prednisone 40 recently due to an upper respiratory sinus infection but he is not sure how much is left of this medication. Ordered an echo CTA chest: Lung parenchyma: Moderate interlobular septal thickening. Mild hazy bilateral ground-glass airspace opacities. Airways: Moderate bronchial wall thickening. Pleura: Small vfcww-mpkjsht-wwxa-left pleural effusions. Will order budesonide nebulizer to help with his cough, which is likely post viral. DS: Summary Hospital Course Hospital Course: 64 year old male w/ suspected Hx of COPD, who presents w SOB. Patient mentions that recently he has been short of breath both at rest and on exertion. Pt was seen at the ED yesterday May after he went to clinic because he was sob. EKG afib with RVR which is a new diagnosis for him. ?Patient denies chest pain, orthopnea and PNDs but has been coughing since he had a recent URT infxn and was treated by oral antibiotics and prednisone 40 mg. ?Patient was smoker and he quit 2 months ago. ?During his ED visit yesterday he was started on apixaban. Pt has history of alcohol use/abuse but clarified later that it has been a little over couple of weeks since had a drink. CTA chest at ED today showed: Mildly enlarged main pulmonary artery, which may be seen in the setting of pulmonary hypertension. Biatrial enlargement and reflux contrast into the hepatic veins may represent right heart dysfunction Rwzk-xz-poizaglh pulmonary edema. Small vnptn-dugqfrg-xdrq-left pleural effusions. No PE. 05/11/2024: Patient reports that symptoms have been present for at least a couple weeks. He has been gradually been feeling worse. Echocardiogram today shows reduced ejection fraction of 30-35%. He has improved but still inadequate rate control with heart rates between 100-120 consistently. Blood pressures have been relatively soft. He is given furosemide for his heart failure. Metoprolol 25 mg q.4 hours for rate control. No evidence of alcohol withdrawal. Hospital day 3, 05/12/2024. Feeling a little better. Rate better controlled. Tolerating increased activities, but exertional heart rates still around 120. Hospital day 4, 05/13/2024. Rates better controlled yet. Resting heart rates 80-100 and exertional heart rates between 100-120. Denies dyspnea at rest, paroxysmal nocturnal dyspnea, orthopnea, or even dyspnea with minimal exertion today. Status at Discharge Functional status at discharge: independent ambulation Time Spent with Patient Time attestation: Total time spent providing and/or coordinating discharge services: Time spent: Greater than 30 minutes Exam Narrative: Exam Narrative: Examine him in his hospital room. Appears comfortable and in no acute distress. Vision and hearing are adequate. Alert and oriented x4. With head of bed elevated at 60? does not have jugular venous distension but does have hepatojugular reflux. Lungs are clear to auscultation Chaotic heart rhythm. Systolic heart murmur. Abdomen benign. Extremities without edema. No focal motor neurologic deficits. Independent in transfer, station, and gait. Const: Vital Signs, click to edit/add: Vital Signs - 24 hr 05/12/24 18:00 05/12/24 19:00 05/12/24 23:00 Temperature 97.0 F L 97.5 F L Pulse Rate Pulse Rate [Pulse Oximeter] 84 80 Respiratory Rate 18 18 Blood Pressure [Le ft Arm] 108/77 98/77 Blood Pressure [Ri ght Arm] Pulse Oximetry 94 94 93 Oxygen Delivery Me thod Room Air Room Air 05/13/24 03:00 05/13/24 06:08 05/13/24 07:00 Temperature 98.2 F Pulse Rate 89 Pulse Rate [Pulse Oximeter] 79 79 Respiratory Rate 20 20 Blood Pressure [Le ft Arm] Blood Pressure [Ri ght Arm] 97/71 Pulse Oximetry 95 Oxygen Delivery Me thod Room Air 05/13/24 07:00 05/13/24 09:00 05/13/24 09:48 Temperature 98.2 F 98.2 F Pulse Rate 84 Pulse Rate [Pulse Oximeter] 83 83 Respiratory Rate 20 20 Blood Pressure [Le ft Arm] 99/82 99/82 Blood Pressure [Ri ght Arm] Pulse Oximetry 93 93 Oxygen Delivery Wa thod Room Air Room Air 05/13/24 11:00 Temperature Pulse Rate Pulse Rate [Pulse Oximeter] 83 Respiratory Rate 18 Blood Pressure [Le ft Arm] 97/87 Blood Pressure [Ri ght Arm] Pulse Oximetry 93 Oxygen Delivery Me thod Room Air DS: Data Data Completed and Pending Labs on day of discharge: Labs from last 24 hours 05/13/24 05:43 WBC 8.05 RBC 5.05 Hgb 15.3 Hct 47.2 MCV 94 MCH 30 MCHC 32 Plt Count 176 VBG pH 7.430 VBG pCO2 44 VBG pO2 36.9 VBG HCO3 29 H Lactate 1.0 Magnesium 2.3 Troponin I 0.02 C-Reactive Protein < 0.5 L NT-Pro-B Natriuret Pep 5290 Procalcitonin 0.07 TSH 0.106 L Digoxin 0.4 L Imaging Echo: Radiologist's impression: Low ejection fraction of 30-35%. Severe mitral regurgitation. Moderate tricuspid regurgitation. Discharge Plan Discharge Disposition: Home, Self-Care Date of Admission: 05/11/24 07:42 Attending Provider on Discharge: Roberto Parra Primary Care Provider: MARCIE WREN Condition: Improved Anticipated Discharge Date/Time: 05/13/24 13:19 Discharge Medications: New melatonin 3 mg Tablet 3 mg PO HS 30 Days Qty: 30 0RF spironolactone 25 mg Tablet 25 mg PO DAILY 30 Days Qty: 30 1RF metoprolol tartrate 50 mg Tablet 50 mg PO BID 30 Days Qty: 60 1RF digoxin 125 mcg (0.125 mg) Tablet 125 mcg PO DAILY 30 Days Qty: 30 1RF hydroxyzine pamoate 25 mg Capsule 25 mg PO Q6H PRN (Reason: anxiety) 14 Days Qty: 60 0RF multivitamin with folic acid [Thera] 400 mcg Tablet 1 tab PO DAILY 30 Days Qty: 30 0RF Continued albuterol sulfate 90 mcg/actuation HFA aerosol inhaler 2 puff inhalation Q4H PRN apixaban 5 mg tablet 5 mg PO BID Qty: 42 0RF Discontinued hydroxyzine HCl 10 mg tablet 10 mg PO Q6H PRN doxycycline monohydrate 100 mg capsule 100 mg PO BID prednisone 20 mg tablet 40 mg PO DAILY metoprolol tartrate 25 mg tablet 25 mg PO BID Qty: 60 2RF Discharge Orders: Discharge Order (Routine); Ordered 05/13/24 Ordered By: Roberto Parra Patient Education: Metoprolol (By mouth), Spironolactone (By mouth), Digoxin ( By mouth), Multivitamins, Adult Formula (By mouth), Hydroxyzine (By mouth), Melatonin (By mouth), Heart Failure (DC), A-fib (Atrial Fibrillation) (DC), Mitral Regurgitation (DC), How to Stop Smoking (DC), Seasoning Without Salt (DC), Cigarette Smoking and Your Health (GEN), Low-Sodium Diet (DC), Alcohol Dependence (DC), Tricuspid Regurgitation (DC) Additional Instructions: 1. Keep follow-up with your [employer] mainframe systems programmer as already set-up for 16 May 2024. 2. Follow-up with your primary animal care technician in 1-2 weeks regarding on-going follow-up COPD, tobacco use, alcohol use, etc. 3. Return to clinic or hospital sooner if needed. Activity Level: Activity as Tolerated Discharge Diet: 2 gm Sodium Follow Up Appointments: Mariela Schmitz PA-C [Referring] - 05/19/24 10:25 am ([facility] for follow up with PCP) MARCIE WREN DO [Primary Care Provider] - Forms: MyHealth Info Instructions
== END 2024-05-13 14:12 | disposition home or self-care (01) | DRG 201 ==
LOC: ED 15:40 → MEDSURG 15:58
PROVIDERS: Internal Medicine; Admitting Provider Family Medicine; Emergency Provider Family Medicine; PCP Student in an Organized Health Care Education/Training Program; Visit Provider Student in an Organized Health Care Education/Training Program
DX: I48.91 Unspecified atrial fibrillation (principal); I50.21 Acute systolic (congestive) heart failure; J06.9 Acute upper respiratory infection, unspecified; I27.20 Pulmonary hypertension, unspecified; J44.9 Chronic obstructive pulmonary disease, unspecified; R00.0 Tachycardia, unspecified; I42.8 Other cardiomyopathies; I08.1 Rheumatic disorders of both mitral and tricuspid valves; F10.21 Alcohol dependence, in remission; Z87.891 Personal history of nicotine dependence
CPT/HCPCS: 36415; 71275; 80048; 80061; 80162; 82803; 83605; 83735; 83880; 84145; 84443; 84484; 85027; 85379; 86140; 93005; 93306; 94640; 99284; 99285; A9153; A9270; G0378; J0330; J1100; J1160; J1940; J2060; J2250; J2405; J2704; J3010; J7030; J7512; J7626; Q9967

== ENCOUNTER 2024-06-17 11:25 | Outpatient (CLI) | payer BC, SELFPAY | END 2024-06-17 11:26 | disposition home or self-care (01) | LOC: AMB 06-18 02:01 | PROVIDERS: PCP Physician Assistant; Visit Provider Family Medicine | DX: R06.09 Other forms of dyspnea (principal); R53.1 Weakness | CPT/HCPCS: A0425; A0427 ==

== ENCOUNTER 2024-07-06 11:42 | Outpatient (CLI) | payer BC, SELFPAY | END 2024-07-06 11:43 | disposition home or self-care (01) | LOC: AMB 07-13 08:12 | PROVIDERS: PCP Physician Assistant; Visit Provider Emergency Medicine | DX: I48.91 Unspecified atrial fibrillation (principal) | CPT/HCPCS: A0425; A0427 ==